=== PATIENT | male | born 1940 | race Caucasian/White ===

== ENCOUNTER 2020-01-30 08:14 | Outpatient (REF) | payer MEDICARE, OTHER, SELFPAY ==
[2020-01-30 08:44] LABS: MANUAL DIFF FLAG NO
[2020-01-30 08:49] LABS: Basophils Percent Auto 0.3 % (0-2); Eosinophils Absolute Auto 0.2 X10*3/uL (0.0-0.4); Eosinophils Percent Auto 2.1 % (0-4); Hematocrit 42.2 % (42-52); Hemoglobin 13.5 g/dl (14.0-18.0); Imm Gran Abs Auto 0.03 X10*3/uL (0.00-0.03); Imm Gran Pct Auto 0.3 % (0.0-0.4); Lymphocytes Absolute Auto 2.2 X10*3/uL (1.2-4.9); Lymphocytes Percent Auto 24.9 % (20-40); Mean Corpuscular Hemoglobin 30.5 pg (27.0-33.0); Mean Corpuscular Volume 95.5 fL (80-98); Mean Platelet Volume 9.9 fL (9.4-12.4); Monocytes Absolute Auto 0.7 X10*3/uL (0.1-1.2); Monocytes Percent Auto 8.1 % (2-11); Neutrophils Absolute Auto 5.6 X10*3/uL (2.0-8.3); Neutrophils Percent Auto 64.3 % (45-73); Platelet Count 219 X10*3/uL (160-400); Red Blood Count 4.42 X10*6/uL (4.60-5.80); Red Cell Distribution Width 13.7 % (11.0-16.0); White Blood Count 8.7 X10*3/uL (4.8-10.8)
[2020-01-30 09:13] LABS: Alanine Aminotransferase 14 U/L (0-40); Albumin Level 4.2 g/dL (3.5-5.0); Alkaline Phosphatase 85 U/L (39-117); Anion Gap 10 (12-20); Aspartate Amino Transferase 19 U/L (5-37); Blood Urea Nitrogen 17 mg/dL (9-16); Carbon Dioxide 33 mmol/L (22-29); Chloride 105 mmol/L (96-108); Estimated Glomerular Filt Rate > 60; Glucose Fasting 101 mg/dL (60-99); Potassium 4.4 mmol/l (3.3-5.1); Sodium 144 mmol/L (135-145); Total Protein 7.5 g/dL (6.5-8.0)
[2020-01-30 09:19] LABS: Alanine Aminotransferase 13 U/L (0-40); Cholesterol 141 mg/dL; HDL Cholesterol 66 mg/dL; LDL Cholesterol Calculated 61 mg/dl; Triglycerides 70 mg/dL
[2020-02-04 16:57] LABS: Levetiracetam Keppra 11.7 mcg/mL (12.0-46.0)
== END 2020-01-30 08:15 | disposition home or self-care (01) ==
LOC: HO.LAB 08:14
PROVIDERS: PCP Internal Medicine; Visit Provider Internal Medicine Cardiovascular Disease
DX: I25.700 Atherosclerosis of coronary artery bypass graft(s), unspecified, with unstable angina pectoris (principal); D64.9 Anemia, unspecified; G40.909 Epilepsy, unspecified, not intractable, without status epilepticus; I25.10 Atherosclerotic heart disease of native coronary artery without angina pectoris
CPT/HCPCS: 36415; 80053; 80061; 80177; 84460; 85025

== ENCOUNTER 2021-03-31 10:47 | Outpatient (REF) | payer MEDICARE, OTHER, SELFPAY ==
[2021-03-31 13:55] LABS: Hematocrit 43.2 % (42.0-52.0); Hemoglobin 14.2 g/dl (14.0-18.0); Mean Corpuscular HGB Conc 32.9 g/dl (31.0-36.0); Mean Corpuscular Hemoglobin 31.3 pg (27.0-33.0); Mean Corpuscular Volume 95.4 fL (80.0-98.0); Mean Platelet Volume 10.8 fL (9.4-12.4); Platelet Count 206 X10*3/uL (160-400); Red Blood Count 4.53 X10*6/uL (4.60-5.80); Red Cell Distribution Width 12.4 % (11.0-16.0); White Blood Count 7.1 X10*3/uL (4.8-10.8)
[2021-03-31 14:16] LABS: Anion Gap 14 (12-20); Blood Urea Nitrogen 17 mg/dL (9-16); Calcium 9.5 mg/dL (8.4-10.2); Carbon Dioxide 26 mmol/L (22-29); Chloride 106 mmol/L (96-108); Cholesterol 205 mg/dL; Estimated Glomerular Filt Rate > 60; Glucose Fasting 93 mg/dL (60-99); HDL Cholesterol 55 mg/dL; LDL Cholesterol Calculated 130 mg/dl; Potassium 4.1 mmol/L (3.3-5.1); Sodium 142 mmol/L (135-145); Triglycerides 101 mg/dL
[2021-03-31 14:20] LABS: B Type Natriuretic Peptide 35 pg/mL (<100)
== END 2021-03-31 10:48 | disposition home or self-care (01) ==
LOC: HO.10HDL 10:47
PROVIDERS: Visit Provider Internal Medicine Cardiovascular Disease
DX: I25.10 Atherosclerotic heart disease of native coronary artery without angina pectoris (principal); D64.9 Anemia, unspecified
CPT/HCPCS: 36415; 80048; 80061; 83880; 85027

== ENCOUNTER 2021-06-05 12:10 | Outpatient (REF) | payer MEDICARE, OTHER, SELFPAY ==
[2021-06-05 12:30] LABS: MANUAL DIFF FLAG NO
[2021-06-05 12:43] LABS: Basophils Percent Auto 0.4 % (0-2); Eosinophils Absolute Auto 0.1 X10*3/uL (0.0-0.4); Eosinophils Percent Auto 1.1 % (0-4); Hematocrit 42.9 % (42.0-52.0); Hemoglobin 14.3 g/dl (14.0-18.0); Imm Gran Abs Auto 0.03 X10*3/uL (0.00-0.03); Imm Gran Pct Auto 0.4 % (0.0-0.4); Lymphocytes Absolute Auto 1.5 X10*3/uL (1.2-4.9); Mean Corpuscular HGB Conc 33.3 g/dl (31.0-36.0); Mean Corpuscular Hemoglobin 32.4 pg (27.0-33.0); Mean Corpuscular Volume 97.3 fL (80.0-98.0); Mean Platelet Volume 10.4 fL (9.4-12.4); Monocytes Absolute Auto 0.5 X10*3/uL (0.1-1.2); Monocytes Percent Auto 7.4 % (2-11); Neutrophils Absolute Auto 5.1 x10*3/uL (2.0-8.3); Neutrophils Percent Auto 69.7 % (45-73); Platelet Count 212 X10*3/uL (160-400); Red Blood Count 4.41 X10*6/uL (4.60-5.80); Red Cell Distribution Width 12.5 % (11.0-16.0); White Blood Count 7.3 X10*3/uL (4.8-10.8)
[2021-06-05 13:02] LABS: Anion Gap 9 (12-20); Blood Urea Nitrogen 14 mg/dL (9-16); Calcium 9.1 mg/dL (8.4-10.2); Carbon Dioxide 31 mmol/L (22-29); Chloride 106 mmol/L (96-108); Estimated Glomerular Filt Rate 57; Glucose Random 123 mg/dL (60-115); Sodium 142 mmol/L (135-145)
[2021-06-05 13:07] LABS: Prothrombin Time 11.4 SEC (9.9-13.0)
== END 2021-06-05 12:11 | disposition home or self-care (01) ==
LOC: HO.LAB 12:10
PROVIDERS: PCP Internal Medicine; Visit Provider Internal Medicine Cardiovascular Disease
DX: Z01.818 Encounter for other preprocedural examination (principal); I25.10 Atherosclerotic heart disease of native coronary artery without angina pectoris; I48.91 Unspecified atrial fibrillation; I63.9 Cerebral infarction, unspecified
CPT/HCPCS: 36415; 80048; 85025; 85610

== ENCOUNTER 2022-03-06 10:18 | Emergency (ER) | payer MEDICARE, OTHER, SELFPAY ==
--- NOTE | ~2022-03-06 | XR_ITS ---
EXAMINATION: CR X-RAY KNEES BILATERAL CLINICAL INFORMATION: Status post trauma with knee pain. COMPARISON: None TECHNIQUE: 4 views each of the bilateral knees were obtained. FINDINGS: Mild medial femoral-tibial joint space narrowing is seen bilaterally. There is no acute fracture, dislocation or joint effusion. The soft tissues are unremarkable. Surgical clips are seen in the soft tissues posteromedially on the left. XR/XR knee LT 3V IMPRESSION: Mild medial femoral-tibial joint space narrowing may be degenerative in nature. No acute abnormality.
--- NOTE | ~2022-03-06 | XR_ITS ---
EXAMINATION: CR X-RAY KNEES BILATERAL CLINICAL INFORMATION: Status post trauma with knee pain. COMPARISON: None TECHNIQUE: 4 views each of the bilateral knees were obtained. FINDINGS: Mild medial femoral-tibial joint space narrowing is seen bilaterally. There is no acute fracture, dislocation or joint effusion. The soft tissues are unremarkable. Surgical clips are seen in the soft tissues posteromedially on the left. XR/XR knee RT 3V IMPRESSION: Mild medial femoral-tibial joint space narrowing may be degenerative in nature. No acute abnormality.
[2022-03-06 10:23] VITALS: PULSE 82; RESP 19; TEMP 36.6; O2SAT 98; BMI 22.6
--- NOTE | 2022-03-06 11:55 | ED.LOWEXIN ---
HPI - Extremity Injury (Lower) General Chief Complaint: Extremity Injury, Lower Stated Complaint: fall, diff walking Time Seen by Provider: 03/06/22 11:46 Source: patient Mode of arrival: ambulatory Limitations: no limitations History of Present Illness HPI Narrative: Patient is an 82-year-old male who presents to the emergency department for bilateral knee pain after a mechanical fall. He states about 4 days ago he had moved a floor pedal machine to the side. While he was going to stand up he thought he had moved it for up to the side but he wound up tripping over the edge of it, falling forward onto the ground landing on bilateral hands and knees. Denies any head strike or loss of consciousness. Denies the use of anticoagulants. Has had ongoing pain reoccurred bilateral knees since event. Has been taking Tylenol for pain which actually does improve his symptoms. He presents today wanting to be evaluated for any potential internal injury. He has been using a walking stick at home which is also helping his gait, but does not typically use a walker or cane at baseline. Related Data Home Medications Medication Instructions Recorded Confirmed levetiracetam 500 mg tablet 500 mg PO BID 02/07/20 11/18/21 aspirin 81 mg tablet,delayed 81 mg PO DAILY 05/21/20 11/18/21 release sacubitril 24 mg-valsartan 26 mg 1 tab PO BID 05/25/21 11/18/21 tablet (Entresto) amlodipine 5 mg tablet 5 mg PO DAILY 08/12/21 11/18/21 Previous Rx's Medication Instructions Recorded metoprolol succinate 25 mg 25 mg PO DAILY 90 days #90 tabs 05/17/21 tablet,extended release 24 hr pantoprazole 40 mg tablet,delayed 40 mg PO DAILY 90 days #90 tabs 05/17/21 release tamsulosin 0.4 mg capsule 0.4 mg PO DAILY 90 days #90 caps 01/24/22 Allergies Allergy/AdvReac Type Severity Reaction Status Date / Time No Known Allergies Allergy Mild NOT Verified 08/12/21 10:19 APPLICABLE Review of Systems Review of Systems: Constitutional: No weight loss, fever, chills, weakness or fatigue. Skin: No rash or itching. Cardiovascular: No chest pain, chest pressure or chest discomfort. No palpitations Respiratory: No shortness of breath, cough or sputum production. Gastrointestinal: No anorexia, nausea, vomiting or diarrhea. No abdominal pain Genitourinary: No burning micturition. No urinary frequency or incontinence. Musculoskeletal: Bilateral knee pain as noted in HPI Psychiatric: No depression or anxiety. Yes all other systems are reviewed and are negative ON LICENSE OF [facility] Past Medical History Attestation statement: The following information was validated with the patient. Source: old records reviewed Medical History Abnormal nuclear stress test CAD (coronary artery disease) of artery bypass graft GERD (gastroesophageal reflux disease) History of stroke Iron deficiency Myocardial ischemia Seizures Surgical History History of colonoscopy History of lumbar surgery Hx of CABG Family History Family History Father Myocardial infarction Mother Diabetes Hypertension Social History Social History Household Members: Spouse Housing: House Are you a primary healthcare science specialist to a significant other at home: No Do you presently have visiting nurse or other home services: No Alcohol intake: current Alcohol intake frequency: holidays/special occasions only Patient Tobacco Use Status: Never used Tobacco Advance Directives: No service: No Current occupational status: retired Current occupation: [place] [employer] Physical Exam Vital Signs: Vital Signs: Last Vital Signs Temp 98 F 03/06/22 10:23 Pulse 82 03/06/22 10:23 Resp 19 03/06/22 10:23 Pulse Ox 98 03/06/22 10:23 O2 Del Method 03/06/22 10:23 BMI result Body Mass Index 22.6 Appearance: Alert.?Oriented to person, place and time. No acute distress.?Normal affect. Eyes: Pupils equal, round and reactive to light.? ENT: Pharynx normal.?? Neck: Normal inspection.? Neck supple.?? CVS: Heart sounds normal. Normal heart rate and rhythm.? Pulses normal.?? Respiratory: No respiratory distress.? Lung sounds clear to auscultation bilaterally?? Abdomen: Soft and non-tender. Normoactive bowel sounds. Skin: Skin warm and dry.? Normal skin color.? ? Extremities: No lower extremity edema.? No calf ttp. Bilateral knees without laxity or obvious deformity upon examination, no effusion. No rashes, erythema, warmth. There is an abrasion to the right anterior knee, does not appear infected, healed bruising to the left anterior knee. 2+ DP/PT pulse bilaterally. Neuro: Moves all extremities spontaneously. Sensation intact bilaterally. No focal neuro deficits. Ambulates with slow antalgic gait Course Course Course Narrative: Patient is an 82-year-old male with a past medical history of CAD, GERD, anemia, myocardial infarction presented to emergency department for evaluation of traumatic bilateral knee pain status post mechanical fall. XR of the left and right knee reveals no acute fractures or dislocations, no obvious joint effusions. Mild joint space narrowing which may be degenerative in nature. At the time of examination he is well-appearing. Physical examination not consistent with septic joint. He is ambulatory with antalgic gait, improvement in gait with use of cane. Declines evaluation from Physical therapy, has no interest in short-term rehab. States he will follow-up with his primary care provider during the week. Discussed plan of care for discharge home, rest, ice, Ernst bandage for compression, elevation of the extremity, continued use of Tylenol as needed for pain. Reviewed worrisome signs and symptoms to return back to the emergency department for. All questions answered. Patient discharged home in stable condition. MDM - Extremity Injury (Lower) Medical Records Attestation: I reviewed the patient's medical records. Imaging Data knee XR: Radiologist's impression: XR/XR knee RT 3V IMPRESSION: Mild medial femoral-tibial joint space narrowing may be degenerative in nature. No acute abnormality.? XR/XR knee LT 3V IMPRESSION: Mild medial femoral-tibial joint space narrowing may be degenerative in nature. No acute abnormality.? Discharge Plan Discharge Clinical Impression: Bilateral knee pain Patient Disposition: Home, Self-Care Instructions: Knee Pain (ED) Additional Instructions: As discussed, the x-ray does not reveal any fracture dislocation to both knees. Please continue to rest over the next few days, apply ice for 10-15 minutes 3-4 times daily, use Ernst bandage for compression, elevate your legs above the level of the chest when possible. Use walking sticks/cane to help with ambulation. You can take Tylenol 500 mg, 2 tablets (1,000mg) every 4-6 hours as needed for pain, but not to exceed 3 doses daily (3,000mg). Contact your primary care provider to arrange for a follow-up visit within the next week Return to emergency department any new or worsening symptoms or concerns. ? Prescriptions: No Action pantoprazole 40 mg tablet,delayed release (DR/EC) 40 mg PO DAILY 90 Days Qty: 90 3RF metoprolol succinate 25 mg tablet extended release 24 hr 25 mg PO DAILY 90 Days Qty: 90 3RF tamsulosin 0.4 mg capsule 0.4 mg PO DAILY 90 Days Qty: 90 1RF Entresto 24-26 mg Tablet 1 tab PO BID aspirin 81 mg tablet,delayed release (DR/EC) 81 mg PO DAILY levetiracetam 500 mg tablet 500 mg PO BID amlodipine 5 mg tablet 5 mg PO DAILY Referrals: Emmanuelle Castle MD [Primary Care Provider] -
[2022-03-06 12:29] VITALS: BP 144/72; PULSE 61; RESP 18; TEMP 36.7; O2SAT 97
== END 2022-03-06 12:43 | disposition home or self-care (01) ==
PROVIDERS: Emergency Provider Emergency Medicine Emergency Medical Services; PCP Internal Medicine
DX: M25.562 Pain in left knee (principal); M25.561 Pain in right knee
CPT/HCPCS: 73562; 99282; 99283

== ENCOUNTER 2022-12-01 13:10 | Outpatient (AMB) | payer MEDICARE, OTHER, SELFPAY ==
[2022-12-01 13:15] VITALS: BP 140/80; PULSE 67; O2SAT 98; BMI 21.0
--- NOTE | 2022-12-01 13:15 | MHC.PC.OV ---
Vital Signs 12/01/22 13:15 12/01/22 13:41 Height 5 ft 11 in Weight 150 lb 8 oz BMI 21.0 BP 140/80 H 130/80 Blood Pressure Location Lt brachial Lt brachial Position Sitting Sitting Pulse 67 Pulse Source Pulse Oximeter Pulse Oximetry (%) 98 Oxygen Delivery Method Room Air Intake Visit Reasons: bp Intake Note: Pt is here for BP check. Hair Mixer Required: No Accompanied by: Self / Same As Patient Allergies No Known Allergies Allergy (Mild, Verified 12/01/22 13:32) NOT APPLICABLE Medication List - Last Reconciled 12/01/22 by Emmanuelle Swain MD amlodipine 5 mg PO DAILY aspirin 81 mg PO DAILY levetiracetam 500 mg PO BID metoprolol succinate ER 25 mg PO DAILY 90 days pantoprazole 40 mg PO DAILY 90 days sacubitril-valsartan 24-26 mg (Entresto) 1 tab PO BID sertraline 25 mg PO DAILY 30 days tamsulosin 0.4 mg PO DAILY 90 days Tobacco use date assessed: 12/01/22 Fall risk assessment: No Falls in past year Last assessed Fall Risk: 12/01/22 Dental Screening Dental Screen Date: 12/01/22 Did you have a dental visit in the last 12 months?: Yes Did you have a dental problem in the last 6 months where you did not have access to dental care?: No Was dental information given to patient?: Patient has dentist HPI HPI Comments History of Present Illness Details This is an 82-year-old male with hypertension, GERD, seizures and mild major depression that comes today for follow-up on his conditions. Blood pressure borderline normal to elevated. GERD stable with PPIs. Has not had a seizure in over 6 months and is follow by Neurology. Depression somewhat stable with sertraline. No chest pain. Complains of dyspnea with exertion and will follow with Cardiology next month. [facility] Medical History Abnormal nuclear stress test CAD (coronary artery disease) of artery bypass graft GERD (gastroesophageal reflux disease) History of stroke Iron deficiency Myocardial ischemia Seizures Surgical History History of colonoscopy History of lumbar surgery Hx of CABG Family History Father Myocardial infarction Mother Diabetes Hypertension Social History (Updated 12/01/22 @ 13:34 by Emmanuelle Swain MD) Household Members: Spouse Housing: House Are you a primary animal care technician to a significant other at home: No Do you presently have visiting nurse or other home services: No Alcohol intake: current Alcohol intake frequency: a few times a month Alcohol type: beer Patient Tobacco Use Status: Former Tobacco user e-Cigarette/Vaping Use: Never Used service: No Current occupational status: retired Current occupation: [employer] Cognitive needs: No Hearing needs: No Vision needs: No Questionnaire Thrive Questionnaire Date Thrive assessed: 07/27/22 REGGIE-7 AMB Questionnaire REGGIE-7 Date REGGIE - 7 assessed: 07/27/22 Source: Developed by Drs. Lex Dempsey, Sonia Mead, Yang Martinez and colleagues, with an educational eula from [employer]. Review of Systems Const All systems reviewed & are unremarkable except as noted in HPI and below Eyes Reports no additional complaints, Denies change in vision and Denies other visual disturbances Card Denies chest pain at rest, Denies chest pain with activity, Denies edema, Denies irregular heart rhythm, Denies claudication, Denies dyspnea, Reports dyspnea on exertion, Denies orthopnea, Denies paroxysmal nocturnal dyspnea and Denies slow heart rate Resp Denies cough, Denies dyspnea and Reports dyspnea on exertion GI Denies abdominal pain, Denies change in bowel habits, Denies excessive flatus, Denies nausea and Denies vomiting Denies urinary hesitancy, Denies urinary incontinence and Denies urinary urgency Musc Denies abnormal gait, Denies atrophy, Denies deformity and Denies limited range of motion Skin/Breast Denies bleeding lesions, Denies changing lesions and Denies rash Neuro Denies abnormal gait and Denies lack of coordination Physical exam (Primary Care) Vital Signs: Last Vital Signs Pulse 67 12/01/22 13:15 BP 140/80 H 12/01/22 13:15 Pulse Ox 98 12/01/22 13:15 Oxygen Delivery Method Room Air 12/01/22 13:15 BMI result Body Mass Index 21.0 Tobacco/Smoking Status: Tobacco use Status Tobacco use date assessed 12/01/22 12/01/22 13:23 Patient Tobacco Use Status Never used Tobacco 12/01/22 13:17 e-Cigarette/Vaping Use Never Used 12/01/22 13:23 Thrive Assessment: Date of Thrive Assessment Date Thrive assessed 07/27/22 12/01/22 13:17 Eyes General: appearance normal, both eyes and all related structures Eyelids: Yes eyelids normal Conjunctivae: conjunctivae normal Neck Neck: Yes normal visual inspection and Yes supple Resp Effort & Inspection: normal respiratory effort Auscultation: clear to auscultation bilaterally Cardio Jugular venous distension: no JVD Rate: regular rate Rhythm: regular rhythm Heart sounds: S1 normal heart sound present and S2 normal heart sound present Extrem General: Yes full ROM Assessment and Plan Assessment & Plan (1) Seizures: Code(s): R56.9 - Unspecified convulsions Plan: Continue Keppra. Follow-up with Neurology. (2) Mild major depression: Code(s): F32.0 - Major depressive disorder, single episode, mild Plan: Continue sertraline. (3) GERD (gastroesophageal reflux disease): Code(s): K21.9 - Gastro-esophageal reflux disease without esophagitis Qualifiers: Esophagitis presence: esophagitis presence not specified Qualified Code(s): K21.9 - Gastro-esophageal reflux disease without esophagitis Plan: Continue PPIs (4) Hypertension: Code(s): I10 - Essential (primary) hypertension Plan: Continue amlodipine and Entresto. Blood pressure goal is equal or less than 130/80. Orders: Orders Comprehensive [place]. Panel Fast Today I10 - Essential (primary) hypertension Lipid Panel Today E78.5 - Hyperlipidemia, unspecified, I10 - Essential (primary) hypertension IRON PROFILE Today D64.9 - Anemia, unspecified, E61.1 - Iron deficiency Complete Blood Count Auto Diff Today D64.9 - Anemia, unspecified, E61.1 - Iron deficiency Coding Level of Care Code Est Pt Level 4 (92431) Diagnoses Seizures R56.9 Mild major depression F32.0 GERD (gastroesophageal reflux disease) K21.9 Esophagitis presence: esophagitis presence not specified Hypertension I10 Time Spent (min) 22
[2022-12-01 13:41] VITALS: BP 130/80
== END 2022-12-01 13:38 | disposition home or self-care (01) ==
PROVIDERS: Visit Provider Internal Medicine
DX: R56.9 Unspecified convulsions (principal); F32.0 Major depressive disorder, single episode, mild; K21.9 Gastro-esophageal reflux disease without esophagitis; I10 Essential (primary) hypertension
CPT/HCPCS: 99214

== ENCOUNTER 2022-12-22 07:17 | Outpatient (REF) | payer MEDICARE, OTHER, SELFPAY ==
[2022-12-22 07:27] LABS: MANUAL DIFF FLAG NO
[2022-12-22 08:02] LABS: Basophils Percent Auto 0.3 % (0-2); Eosinophils Absolute Auto 0.1 X10*3/uL (0.0-0.4); Eosinophils Percent Auto 1.1 % (0-4); Hematocrit 39.8 % (42.0-52.0); Hemoglobin 13.3 g/dl (14.0-18.0); Imm Gran Abs Auto 0.02 X10*3/uL (0.00-0.03); Imm Gran Pct Auto 0.3 % (0.0-0.4); Lymphocytes Absolute Auto 1.9 X10*3/uL (1.2-4.9); Lymphocytes Percent Auto 25.3 % (20-40); Mean Corpuscular HGB Conc 33.4 g/dl (31.0-36.0); Mean Corpuscular Hemoglobin 33.2 pg (27.0-33.0); Mean Corpuscular Volume 99.3 fL (80.0-98.0); Mean Platelet Volume 10.3 fL (9.4-12.4); Monocytes Absolute Auto 0.7 X10*3/uL (0.1-1.2); Monocytes Percent Auto 9.5 % (2-11); Neutrophils Absolute Auto 4.7 x10*3/uL (2.0-8.3); Neutrophils Percent Auto 63.5 % (45-73); Platelet Count 216 X10*3/uL (160-400); Red Blood Count 4.01 X10*6/uL (4.60-5.80); Red Cell Distribution Width 12.9 % (11.0-16.0); White Blood Count 7.4 X10*3/uL (4.8-10.8)
[2022-12-22 08:36] LABS: Alanine Aminotransferase 13 U/L (0-40); Albumin Level 4.1 g/dL (3.5-5.0); Alkaline Phosphatase 56 U/L (39-117); Anion Gap 14 (12-20); Aspartate Amino Transferase 19 U/L (5-37); Bilirubin Total 0.6 mg/dL (0.0-1.0); Blood Urea Nitrogen 16 mg/dL (9-16); Calcium 9.4 mg/dL (8.4-10.2); Carbon Dioxide 26 mmol/L (22-29); Chloride 106 mmol/L (96-108); Cholesterol 185 mg/dL (<200); Estimated Glomerular Filt Rate > 60; Glucose Fasting 103 mg/dL (60-99); HDL Cholesterol 77 mg/dL (>40); Iron 79 mcg/dL (45-160); LDL Cholesterol Calculated 94 mg/dL (<100); Percent Iron Saturation 34 % (15-50); Potassium 4.3 mmol/L (3.3-5.1); Sodium 142 mmol/L (135-145); Total Iron Binding Capacity 232 mcg/dL (228-428); Total Protein 7.1 g/dL (6.5-8.0); Triglycerides 72 mg/dL (<150); Unsaturated Iron Binding 153 ug/dL
== END 2022-12-22 07:18 | disposition home or self-care (01) ==
LOC: HO.LAB 07:17
PROVIDERS: PCP Internal Medicine; Visit Provider Internal Medicine
DX: E78.5 Hyperlipidemia, unspecified (principal); I10 Essential (primary) hypertension; D64.9 Anemia, unspecified; E61.1 Iron deficiency
CPT/HCPCS: 36415; 80053; 80061; 83540; 85025

== ENCOUNTER 2023-04-04 13:42 | Outpatient (AMB) | payer MEDICARE, OTHER, SELFPAY ==
[2023-04-04 13:45] VITALS: BP 142/70; BMI 20.4
--- NOTE | 2023-04-04 13:45 | A.OFFPC_ITS ---
Vital Signs 04/04/23 13:45 04/04/23 14:15 Height 5 ft 11 in Weight 146 lb BMI 20.4 BP 142/70 H 138/70 Blood Pressure Location Lt brachial Lt brachial Position Sitting Sitting Intake Visit Reasons: bp Intake Note: Patient here for a follow up BP Family Independence Case Manager Required: No Accompanied by: Self / Same As Patient Allergies No Known Allergies Allergy (Mild, Verified 04/04/23 13:57) NOT APPLICABLE Medication List - Last Reconciled 04/04/23 by Emmanuelle Swain MD amlodipine 5 mg PO DAILY aspirin 81 mg PO DAILY levetiracetam 500 mg PO BID metoprolol succinate ER 25 mg PO DAILY 90 days pantoprazole 40 mg PO DAILY 90 days sacubitril-valsartan 24-26 mg (Entresto) 1 tab PO BID sertraline 25 mg PO DAILY 30 days tamsulosin 0.4 mg PO DAILY 90 days Tobacco use date assessed: 12/01/22 Fall risk assessment: No Falls in past year Last assessed Fall Risk: 04/04/23 Dental Screening Dental Screen Date: 04/04/23 Did you have a dental visit in the last 12 months?: Yes Did you have a dental problem in the last 6 months where you did not have access to dental care?: No Was dental information given to patient?: Patient has dentist HPI HPI Comments History of Present Illness Details This is an 83-year-old male with hypertension, GERD, mild major depression and seizures that comes today for follow-up on his conditions. Blood pressure borderline normal to elevated. GERD stable with PPIs as needed. Depression somewhat well control with sertraline but he is having a stressful time now with his at ICU due to status epilepticus. He has not had a seizure in over 3 months with [place] and this is follow by Neurology. No chest pain or shortness of breath. [facility] Medical History Abnormal nuclear stress test Myocardial ischemia History of stroke Seizures Iron deficiency GERD (gastroesophageal reflux disease) CAD (coronary artery disease) of artery bypass graft Surgical History History of colonoscopy Hx of CABG History of lumbar surgery Family History Father Myocardial infarction Mother Diabetes Hypertension Social History Household Members: Spouse Housing: House Are you a primary healthcare manager to a significant other at home: No Do you presently have visiting nurse or other home services: No Alcohol intake: current Alcohol intake frequency: a few times a month Alcohol type: beer Patient Tobacco Use Status: Former Tobacco user e-Cigarette/Vaping Use: Never Used service: No Current occupational status: retired Current occupation: [place] [employer] Cognitive needs: No Hearing needs: No Vision needs: No Questionnaire Thrive Questionnaire Date Thrive assessed: 07/27/22 REGGIE-7 AMB Questionnaire REGGIE-7 Date REGGIE - 7 assessed: 07/27/22 Source: Developed by Drs. Lex Dempsey, Sonia Mead, Yang Martinez and colleagues, with an educational eula from [employer]. Review of Systems Const All systems reviewed & are unremarkable except as noted in HPI and below Eyes Reports no additional complaints, Denies change in vision and Denies other visual disturbances Card Denies chest pain at rest, Denies chest pain with activity, Denies edema, Denies irregular heart rhythm, Denies claudication, Denies dyspnea, Denies dyspnea on exertion, Denies orthopnea, Denies paroxysmal nocturnal dyspnea and Denies slow heart rate Resp Denies cough, Denies dyspnea and Denies dyspnea on exertion GI Denies abdominal pain, Denies change in bowel habits, Denies excessive flatus, Denies nausea and Denies vomiting Denies urinary hesitancy, Denies urinary incontinence and Denies urinary urgency Musc Denies abnormal gait, Denies atrophy, Denies deformity and Denies limited range of motion Skin/Breast Denies bleeding lesions, Denies changing lesions and Denies rash Neuro Denies abnormal gait, Denies behavioral changes and Denies lack of coordination Psych Denies behavioral changes Physical exam (Primary Care) Vital Signs: Last Vital Signs BP 142/70 H 04/04/23 13:45 BMI result Body Mass Index 20.4 Tobacco/Smoking Status: Tobacco use Status Tobacco use date assessed 12/01/22 04/04/23 13:49 Patient Tobacco Use Status Former Tobacco user 04/04/23 13:49 e-Cigarette/Vaping Use Never Used 04/04/23 13:49 Thrive Assessment: Date of Thrive Assessment Date Thrive assessed 07/27/22 04/04/23 13:49 Eyes General: appearance normal, both eyes and all related structures Eyelids: Yes eyelids normal Conjunctivae: conjunctivae normal Neck Neck: Yes normal visual inspection and Yes supple Resp Effort & Inspection: normal respiratory effort Auscultation: clear to auscultation bilaterally Cardio Jugular venous distension: no JVD Rate: regular rate Rhythm: regular rhythm Heart sounds: S1 normal heart sound present and S2 normal heart sound present Extrem General: Yes full ROM Office Procedures Flu Questionnaire Does the patient have a severe egg allergy?: No Immunizations flu vacc [id number] 6mos up(PF) 60 mcg(15 mcgx4)/0.5 mL IM syringe Performing Provider: Emmanuelle Swain MD [facility] Documented (not given) by: JUAN CARLOS Plascencia on 04/04/23 13:50 Reason Not Given: Received Previously Assessment and Plan Assessment & Plan (1) Hypertension: Code(s): I10 - Essential (primary) hypertension Plan: Continue amlodipine. (2) Seizures: Code(s): R56.9 - Unspecified convulsions Plan: Continue Keppra. Follow up with Neurology. (3) GERD (gastroesophageal reflux disease): Code(s): K21.9 - Gastro-esophageal reflux disease without esophagitis Qualifiers: Esophagitis presence: esophagitis presence not specified Qualified Code(s): K21.9 - Gastro-esophageal reflux disease without esophagitis Plan: Continue PPIs as needed. (4) Mild major depression: Code(s): F32.0 - Major depressive disorder, single episode, mild Plan: Continue sertraline. Orders: Orders Influenza [id number] Immunization Today Z23 - Encounter for immunization Coding Level of Care Code Est Pt Level 4 (19486) Diagnoses Hypertension I10 Seizures R56.9 Gastroesophageal reflux disease, unspecified whether esophagitis present K21.9 Esophagitis presence: esophagitis presence not specified Mild major depression F32.0 Time Spent (min) 21
[2023-04-04 14:15] VITALS: BP 138/70
== END 2023-04-04 14:09 | disposition home or self-care (01) ==
PROVIDERS: PCP Internal Medicine; Visit Provider Internal Medicine
DX: I10 Essential (primary) hypertension (principal); R56.9 Unspecified convulsions; F32.0 Major depressive disorder, single episode, mild; K21.9 Gastro-esophageal reflux disease without esophagitis
CPT/HCPCS: 99214

== ENCOUNTER 2023-09-13 07:06 | Outpatient (AMB) | payer MEDICARE, OTHER, SELFPAY ==
--- NOTE | 2023-09-13 07:35 | MHC.PC.OV ---
Intake Visit Reasons: AWV Allergies No Known Allergies Allergy (Mild, Verified 04/04/23 13:57) NOT APPLICABLE Tobacco use date assessed: 12/01/22 Dental Screening Dental Screen Date: 04/04/23 [facility] Medical History Abnormal nuclear stress test Myocardial ischemia History of stroke Seizures Iron deficiency GERD (gastroesophageal reflux disease) CAD (coronary artery disease) of artery bypass graft Surgical History History of colonoscopy Hx of CABG History of lumbar surgery Family History Father Myocardial infarction Mother Diabetes Hypertension Social History Household Members: Spouse Housing: House Are you a primary nonfarm animal caretaker to a significant other at home: No Do you presently have visiting nurse or other home services: No Alcohol intake: current Alcohol intake frequency: a few times a month Alcohol type: beer Patient Tobacco Use Status: Former Tobacco user e-Cigarette/Vaping Use: Never Used service: No Current occupational status: retired Current occupation: [employer] Cognitive needs: No Hearing needs: No Vision needs: No Questionnaire Thrive Questionnaire Date Thrive assessed: 07/27/22 REGGIE-7 AMB Questionnaire REGGIE-7 Date REGGIE - 7 assessed: 07/27/22 Source: Developed by Drs. Lex Dempsey, Sonia Mead, Yang Martinez and colleagues, with an educational eula from [employer]. Physical exam (Primary Care) Tobacco/Smoking Status: Tobacco use Status Tobacco use date assessed 12/01/22 04/04/23 13:49 Patient Tobacco Use Status Former Tobacco user 04/04/23 13:49 e-Cigarette/Vaping Use Never Used 04/04/23 13:49 Thrive Assessment: Date of Thrive Assessment Date Thrive assessed 07/27/22 04/04/23 13:49 Coding
[2023-09-13 07:36] VITALS: BP 122/58; BMI 21.8
--- NOTE | 2023-09-13 07:36 | A.OFFVIS_ITS ---
Intake Vital Signs 09/13/23 07:36 Height 5 ft 11 in Weight 156 lb BMI 21.8 BP 122/58 L Blood Pressure Location Lt brachial Position Sitting Intake Visit Reasons: AWV Intake Note: Patient here for an annual wellness visit Well Testing Operator Required: No Accompanied by: Self / Same As Patient Allergies No Known Allergies Allergy (Mild, Verified 09/13/23 07:52) NOT APPLICABLE Medication List - Last Reconciled 09/13/23 by Emmanuelle Swain MD amlodipine 5 mg PO DAILY 90 days aspirin 81 mg PO DAILY levetiracetam 500 mg PO BID metoprolol succinate ER 25 mg PO DAILY 90 days pantoprazole 40 mg PO DAILY 90 days sacubitril-valsartan 24-26 mg (Entresto) 1 tab PO BID sertraline 25 mg PO DAILY 30 days tamsulosin 0.4 mg PO DAILY 90 days HPI HPI Comments History of Present Illness Details This is an 83-year-old male with mild major depression and seizures that comes for his Medicare annual wellness exam. Depression has been worse since in 05/07/2023. He is on sertraline and I will increase it from 25 mg to 50 mg. He has some anxiety and I will add benzodiazepine as needed. Patient is aware that benzodiazepines can cause addiction, sedation and memory loss. Maximilian Ch from Behavioral Health was consulted in the office talk with him. Has not had a seizure in over 6 months and this is follow by Neurology. [facility] handed to patient. We filled out MOLST paperwork. [facility] Medical History (Updated 09/13/23 @ 10:30 by Emmanuelle Swain MD) Abnormal nuclear stress test Myocardial ischemia History of stroke Seizures Iron deficiency GERD (gastroesophageal reflux disease) CAD (coronary artery disease) of artery bypass graft Surgical History History of colonoscopy Hx of CABG History of lumbar surgery Family History Father Myocardial infarction Mother Diabetes Hypertension Social History Household Members: Spouse Housing: House Are you a primary child care worker to a significant other at home: No Do you presently have visiting nurse or other home services: No Alcohol intake: current Alcohol intake frequency: a few times a month Alcohol type: beer Patient Tobacco Use Status: Former Tobacco user e-Cigarette/Vaping Use: Never Used service: No Current occupational status: retired Current occupation: [employer] Cognitive needs: No Hearing needs: No Vision needs: No Questionnaire Medicare Wellness Checkup What is your age?: 80 or older What gender do you identify with?: male During the past 4 weeks, how much have you been bothered by emotional problems such as feeling anxious, depressed, irritable, sad or downhearted, and blue?: extremely During the past 4 weeks, has your physical & emotional health limited your social activities with family, friends, neighbors, or groups?: extremely During the past 4 weeks, how much bodily pain have you generally had?: no pain During the past 4 weeks, was someone available to help you if you needed & wanted help?: yes, some During the past 4 weeks, what was the hardest physical activity you could do for at least 2 minutes?: moderate Can you get to places out of walking distance without help? (For eg., can you travel alone on buses, taxis or drive your car?): Yes Can you go shopping for groceries or clothes without someone's help?: Yes Can you prepare your own meals?: Yes Can you do your housework without help?: Yes Because of any health problems, do you need the help of another person with your personal care needs such as eating, bathing, dressing or getting around the house?: No Can you handle your own money without help?: Yes During the past 4 weeks, how would you rate your health in general?: good During the past 4 weeks how have things been going for you?: pretty bad Are you having difficulties driving your car?: no Do you always fasten your seat belt when you are in a car?: yes, usually During past 4 weeks, have you been bothered by the following: never: Sexual problems?, Trouble eating well?, Teeth or denture problems? and Problems using the telephone?, sometimes: Falling or dizzy when standing up and often: Tiredness or fatigue? Have you fallen 2 or more times in the past year?: No Are you afraid of falling?: No Are you a smoker?: no During the past 4 weeks, how many drinks of wine, beer, or other alcoholic beverages did you have?: 6-9 drinks per week Do you exercise for about 20 minutes 3 or more times a week?: yes, some of the time Have you been given information to help with the following?: yes: Keeping track of your medications? and no: Hazards in your house that might hurt you? How often do you have trouble taking medicines the way you have been told to take them?: I always take medicine as prescribed How confident are you that you can control & manage most of your health problems?: somewhat confident What is your race?: White Mini Mental State Exam (MMSE) Orientation What is the (year) (season) (date) (day) (month)?: year, season, date, day and month Where are we (state) (county) (town or city) (hospital) (floor)?: state, county, town or city, hospital/clinic and floor Registration Name of 3 unrelated objects clearly and slowly, then ask patient to repeat all 3 of them. (1st repeat determines score. Make sure they can repeat all three): object 1, object 2 and object 3 Attention & Calculation (CHOOSE ONE) Spell WORLD backwards (DLROW): 5 letters Recall Ask patient to repeat the 3 items from question #3.: object 1, object 2 and object 3 Language Show patient a wristwatch & ask what it is. Repeat for pencil.: watch and pencil Ask the patient to repeat the phrase 'No ifs, ands, or buts' after you.: correct Ask the patient to 'take a piece of paper with their right hand' 'fold paper in half' 'place paper on floor': take paper in right hand, fold paper in half and place paper on floor Print the sentence 'CLOSE YOUR EYES' on a piece. If patient actually closes eyes then score.: followed written direction Give patient a blank piece of paper & ask to write a sentence. Score if it contains a noun & verb.: sentence contains subject and verb Ask patient to copy figure of intersecting pentagons exactly. Score if all 10 angles & 2 intersects are included.: all 10 angles present & 2 are intersected Score Score: 30 Activity of Daily Living Bathing - sponge bath, tub bath or shower: receives no assistance (gets in/out by self, if usual bathing means Dressing - getting clothes from closets & drawers, including inner/outer garments & fasteners.: gets clothes & gets completely dressed without help Toileting - going to the 'toilet room' for urine/bowel elimination & cleaning self/arranging clothes: goes to toilet room, cleans self, arranges clothes without help Transfer: moves in & out of bed and chair without help (may use support object) Continence: controls urination/bowel movements completely by self Feeding: feeds self without help Total Score: 0 Information obtained from: patient Using telephone: independent Traveling: independent Shopping: independent Preparing meals: independent Housework: independent Taking medicine: independent Managing money: independent PHQ-9 Over the last 2 weeks, how often have you been bothered by any of the following problems? 1. Little interest or pleasure in doing things: more than half the days 2. Feeling down, depressed, or hopeless: more than half the days 3. Trouble falling or staying asleep, or sleeping too much: more than half the days 4. Feeling tired or having little energy: more than half the days 5. Poor appetite or overeating: not at all 6. Feeling bad about yourself - or that you are a failure or have let yourself or your family down: more than half the days 7. Trouble concentrating on things, such as reading the newspaper or watching television: several days 8. Moving or speaking so slowly that other people could have noticed. Or the opposite - being so fidgety or restless that you have been moving around a lot more than usual: not at all 9. Thoughts that you would be better off or of hurting yourself in some way: not at all Total score: 11 Depression Screening Interpretation: Positive Depression Screening Follow-up: Existing condition, In treatment and Follow-up Visit Requested Depression Screening Done: Yes 35906 - PHQ-9 Billing: Yes Source: Developed by Drs. Lex Dempsey, Sonia Mead, Yang Martinez and colleagues, with an educational eula from [employer]. REGGIE-7 AMB Questionnaire REGGIE-7 Date REGGIE - 7 assessed: 09/13/23 Feeling nervous, anxious, or on edge: 3 = Nearly every day Not being able to stop or control worryin = Several days Worrying too much about different things: 3 = Nearly every day Trouble relaxin = Nearly every day Being so restless that it is hard to sit still: 2 = More than half the days Becoming easily annoyed or irritable: 0 = Not at all Feeling afraid as if something awful might happen: 1 = Several days Total REGGIE-7 score (0-4 normal; 5-9 mild; 10-14 moderate; 15-21 severe): 13 Source: Developed by Drs. Lex Dempsey, Sonia Mead, Yang Martinez and colleagues, with an educational eula from [employer]. REGGIE-7 Assessment Billing REGGIE-7 Assessment Tool: REGGIE-7 Assessment 46525 Fall Risk Assessment Fall Risk Assessment Fall risk assessment: No Falls in past year Thrive Questionnaire Date Thrive assessed: 09/13/23 I am a: Patient What is your living situation today?: I have a steady place to live Within the past 12 months, did the food you bought not last and you didn't have the money to get more?: Never true Within the past 12 months, did you worry whether your food would run out before you got money to buy more?: Never true Do you have trouble paying for medicines?: No Do you have trouble getting transportation to medical appointments?: No Do you have trouble paying your heating and electricity bill?: No Do you have trouble taking care of your child, family member or friend?: No Do you have trouble with day-to-day activities such as bathing, preparing meals, shopping, managing finances, etc.?: No Are you currently unemployed and looking for a job?: No Are you interested in more education?: No Please select the resources that you would like help with: None Currently or been in a relationship where the following occur: no concerns reported THRIVE Score: 0 AUDIT C Alcohol Use Questionnaire (AUDIT-C) 1. How often do you have a drink containing alcohol?: 2-4 times a month 2. How many drinks containing alcohol do you have on a typical day when you are drinking?: 1 or 2 Total Score: 2 Score Reviewed/Action Taken: No Review of Systems Const All systems reviewed & are unremarkable except as noted in HPI and below Card Denies chest pain at rest, Denies chest pain with activity, Denies edema, Denies irregular heart rhythm, Denies claudication, Denies dyspnea, Denies dyspnea on exertion, Denies orthopnea, Denies paroxysmal nocturnal dyspnea and Denies slow heart rate Resp Denies cough, Denies dyspnea and Denies dyspnea on exertion GI Denies abdominal pain, Denies change in bowel habits, Denies excessive flatus, Denies nausea and Denies vomiting Denies urinary hesitancy, Denies urinary incontinence and Denies urinary urgency Musc Denies abnormal gait, Denies atrophy, Denies deformity and Denies limited range of motion Neuro Denies abnormal gait, Denies confusion and Denies lack of coordination Psych Reports abnormal sleep pattern, Reports anxiety, Denies confusion, Reports depression, Reports difficulty concentrating and Reports anhedonia Physical Exam Vital Signs: Last Vital Signs BP 122/58 L 09/13/23 07:36 BMI result Body Mass Index 21.8 Const General: No confusion Orientation/consciousness: patient oriented x3 and No confusion HEENT Ears: hearing grossly normal bilaterally (Whisper test negative bilaterally) Resp Effort & Inspection: normal respiratory effort Auscultation: clear to auscultation bilaterally Cardio Jugular venous distension: no JVD Rate: regular rate Rhythm: regular rhythm Heart sounds: S1 normal heart sound present and S2 normal heart sound present Neuro General: patient oriented x3, no focal motor deficits and No confusion Gait exam (Neuro): Normal gait present Romberg Test: Negative Extrem General: Yes full ROM Psych Appearance: grossly normal Speech and movement: Normal speech and movement present Affect: Sad affect present Attitude: cooperative Assessment & Plan Assessment & Plan (1) Encounter for annual wellness exam in Medicare patient: Code(s): Z00.00 - Encounter for general adult medical examination without abnormal findings Plan: Repeat in a year. (2) Mild major depression: Code(s): F32.0 - Major depressive disorder, single episode, mild Plan: Increase sertraline to 50 mg. Referred to counseling. (3) Seizures: Code(s): R56.9 - Unspecified convulsions Plan: Continue Keppra. Follow-up with Neurology. Orders: Orders Complete Blood Count Auto Diff Today D64.9 - Anemia, unspecified IRON PROFILE Today D64.9 - Anemia, unspecified Lipid Panel Today E78.5 - Hyperlipidemia, unspecified, I10 - Essential (primary) hypertension Comprehensive [place]. Panel Fast Today I10 - Essential (primary) hypertension Levetiracetam Keppra Today R56.9 - Unspecified convulsions Referrals Counseling Referral F32.0 - Major depressive disorder, single episode, mild Medications: New sertraline 50 mg PO DAILY 90 days 90 tabs 1RF alprazolam 0.5 mg PO BID 30 days PRN 30 tabs 0RF anxiety Discontinued sertraline Discontinued Reason: No Longer Medically Relevant 25 mg PO DAILY 30 days 30 tabs 1RF F32.0 - Major depressive disorder, single episode, mild Quality Reporting (2019) Fall Risk Screening ([facility] 139) Fall risk assessment: No Falls in past year Depression/Bipolar (159/160/161/177) PHQ-9: Total score: 11 Coding Level of Care Code Medicare First (G0438) Diagnoses Encounter for annual wellness exam in Medicare patient Z00.00 Mild major depression F32.0 Seizures R56.9 CPT Codes Advance Care Planning - Time spent: 1-15 minutes, on File ([id number]) Additional Codes REGGIE-7 Assessment Billing - REGGIE-7 Assessment Tool: REGGIE-7 Assessment 64794 ([id number]) Time Spent (min) 40 Advance Care Planning Advance Care Planning discussion: Completed/Scanned Date of discussion: 09/13/23 Who was present: patient and me Forms completed: MOLST Time spent: 1-15 minutes, on File Actual minutes spent: 5
== END 2023-09-13 08:23 | disposition home or self-care (01) ==
PROVIDERS: PCP Internal Medicine; Visit Provider Internal Medicine
DX: Z00.00 Encounter for general adult medical examination without abnormal findings (principal); F32.0 Major depressive disorder, single episode, mild; R56.9 Unspecified convulsions
CPT/HCPCS: 1123F; G0438; G0439

== ENCOUNTER 2023-11-28 07:59 | Emergency (ER) | payer MEDICARE, OTHER, SELFPAY ==
--- NOTE | ~2023-11-28 | XR_ITS ---
EXAMINATION: XR CHEST CLINICAL INFORMATION: Cough COMPARISON: Chest radiograph from 12/01/2018, CTA chest from 04/04/2019 TECHNIQUE: 2 views of the chest were obtained. FINDINGS: Chronic small to moderate left pleural effusion with subjacent atelectasis. Chronic small right pleural effusion with subjacent atelectasis. Biapical pleural parenchymal scarring. No pneumothorax. Trachea is midline. Sternotomy wires. Cardiac mediastinal silhouette is not enlarged. Trace atherosclerotic calcifications. Osseous structures are intact. Soft tissues are unremarkable. XR/XR chest 2V IMPRESSION: 1. Chronic small to moderate left pleural effusion with subjacent atelectasis. 2. Chronic small right pleural effusion with subjacent atelectasis. 3. Biapical pleural parenchymal scarring.
[2023-11-28 08:03] VITALS: BP 169/96; PULSE 77; RESP 18; TEMP 36.6; O2SAT 97; BMI 21.6
--- NOTE | 2023-11-28 08:09 | ECG_ITS ---
Test Reason : cough Blood Pressure : / mmHG Vent. Rate : 065 BPM Atrial Rate : 065 BPM P-R Int : 156 ms QRS Dur : 076 ms QT Int : 394 ms P-R-T Axes : 041 023 026 degrees QTc Int : 409 ms Normal sinus rhythm Possible Anterior infarct , age undetermined Abnormal ECG When compared with ECG of 04-APR-2019 19:25, No significant change was found Referred By: Generic ED Physician Electronically Signed By:YUMIKO ALVAREZ
[2023-11-28 09:03] LABS: Influenza A PCR NEGATIVE (Negative); Influenza B PCR NEGATIVE (Negative); Resp Syncy Virus RNA Qual PCR NEGATIVE (Negative); SARS COV2 PCR INHOUSE NEGATIVE (Negative)
[2023-11-28 09:51] LABS: MANUAL DIFF FLAG NO
[2023-11-28 09:53] LABS: Basophils Percent Auto 0.3 % (0-2); Eosinophils Absolute Auto 0.1 X10*3/uL (0.0-0.4); Hematocrit 42.5 % (42.0-52.0); Hemoglobin 14.4 g/dl (14.0-18.0); Imm Gran Abs Auto 0.04 X10*3/uL (0.00-0.03); Imm Gran Pct Auto 0.4 % (0.0-0.4); Lymphocytes Absolute Auto 1.6 X10*3/uL (1.2-4.9); Lymphocytes Percent Auto 16.8 % (20-40); Mean Corpuscular HGB Conc 33.9 g/dl (31.0-36.0); Mean Corpuscular Hemoglobin 34.1 pg (27.0-33.0); Mean Corpuscular Volume 100.7 fL (80.0-98.0); Mean Platelet Volume 10.1 fL (9.4-12.4); Monocytes Percent Auto 10.5 % (2-11); Neutrophils Absolute Auto 6.8 x10*3/uL (2.0-8.3); Platelet Count 217 X10*3/uL (160-400); Red Blood Count 4.22 X10*6/uL (4.60-5.80); Red Cell Distribution Width 12.4 % (11.0-16.0); White Blood Count 9.6 X10*3/uL (4.8-10.8)
[2023-11-28 10:06] LABS: Partial Thromboplastin Time 27.3 SEC (26.0-36.8)
[2023-11-28 10:07] LABS: Alanine Aminotransferase 14 U/L (0-40); Albumin Level 4.1 g/dL (3.5-5.0); Alkaline Phosphatase 51 U/L (39-117); Anion Gap 12 (12-20); Aspartate Amino Transferase 19 U/L (5-37); Bilirubin Total 0.9 mg/dL (0.0-1.0); Blood Urea Nitrogen 10 mg/dL (9-16); Calcium 9.1 mg/dL (8.4-10.2); Carbon Dioxide 28 mmol/L (22-29); Chloride 107 mmol/L (96-108); Creatinine Clr Calc Pharmacy 53.3; Estimated Glomerular Filt Rate > 60; Glucose Random 102 mg/dL (60-115); Potassium 4.9 mmol/L (3.3-5.1); Sodium 142 mmol/L (135-145); Total Protein 7.1 g/dL (6.5-8.0)
[2023-11-28 10:18] LABS: Troponin-I High Sensitivity < 2.7 ng/L (<3.5-35.0)
--- NOTE | 2023-11-28 11:00 | ED.URI ---
HPI - URI/Sore Throat General Chief Complaint: Upper Respiratory Symptoms Stated Complaint: cold heavy chest cough Time Seen by Provider: 11/28/23 08:24 Source: patient Mode of arrival: ambulatory Limitations: no limitations History of Present Illness ED Provider: Dr. Aguila Szymanski HPI Narrative: 83-year-old male with a history of hypertension, coronary disease, GERD, depression, seizures, CABG who presents emergency department for evaluation of cough x2 weeks. Patient states that his cough is gotten worse over the past several days. He states he is coughing up thick yellow phlegm with no blood in the sputum. He states he has also been sneezing. He is complaining of chest pain which is worse with breathing and with sneezing. He states he has been feeling very fatigued. Patient had subjective fever and chills. He complained of rhinorrhea and dyspnea on exertion. He denied nausea, vomiting, diarrhea, frequency, dysuria, myalgias arthralgias Related Data Home Medications ?Medication ?Instructions ?Recorded ?Confirmed levetiracetam 500 mg tablet 500 mg PO BID 02/07/20 09/13/23 aspirin 81 mg tablet,delayed 81 mg PO DAILY 05/21/20 09/13/23 release sacubitril 24 mg-valsartan 26 mg 1 tab PO BID 05/25/21 09/13/23 tablet (Entresto) Previous Rx's ?Medication ?Instructions ?Recorded pantoprazole 40 mg tablet,delayed 40 mg PO DAILY 90 days #90 tabs 07/20/22 release tamsulosin 0.4 mg capsule 0.4 mg PO DAILY 90 days #90 caps 01/12/23 metoprolol succinate 25 mg 25 mg PO DAILY 90 days #90 tabs 07/08/23 tablet,extended release 24 hr amlodipine 5 mg tablet 5 mg PO DAILY 90 days #90 tabs 08/04/23 alprazolam 0.5 mg tablet 0.5 mg PO BID PRN anxiety 30 days 09/13/23 #30 tabs sertraline 50 mg tablet 50 mg PO DAILY 90 days #90 tabs 09/13/23 doxycycline monohydrate 100 mg 100 mg PO Q12H #14 caps 11/28/23 capsule Allergies Allergy/AdvReac Type Severity Reaction Status Date / Time No Known Allergies Allergy Mild NOT Verified 11/28/23 08:07 APPLICABLE Review of Systems Review of Systems: Yes all other systems are reviewed and are negative [facility] Past Medical History [facility] Narrative: Social history: Patient denies tobacco use. He states that he smoked cigarettes when he was a teenager for only a few years. He denies alcohol and drug use. Medical History Abnormal nuclear stress test Myocardial ischemia History of stroke Seizures Iron deficiency GERD (gastroesophageal reflux disease) CAD (coronary artery disease) of artery bypass graft Surgical History History of colonoscopy Hx of CABG History of lumbar surgery Family History Family History Father Myocardial infarction Mother Diabetes Hypertension Social History Social History Household Members: Spouse Housing: House Are you a primary direct care worker to a significant other at home: No Do you presently have visiting nurse or other home services: No Alcohol intake: current Alcohol intake frequency: a few times a month Alcohol type: beer Patient Tobacco Use Status: Former Tobacco user e-Cigarette/Vaping Use: Never Used Advance Directives: No Advance Directives Information Provided: Yes service: No Current occupational status: retired Current occupation: [employer] Cognitive needs: No Hearing needs: No Vision needs: No Physical Exam Vital Signs: Vital Signs: Last Vital Signs Temp 97.9 F 11/28/23 08:03 Pulse 67 11/28/23 11:12 Resp 16 11/28/23 11:12 BP 177/100 H 11/28/23 11:12 Pulse Ox 96 11/28/23 11:12 O2 Del Method Room Air 11/28/23 11:12 BMI result Body Mass Index 21.6 Vital signs revealed an elevated blood pressure of 169/96 otherwise unremarkable Exam: General: Awake, alert in no distress Head: Normocephalic, atraumatic EENT: PERRL, Lids normal, sclera normal, conjunctiva normal, nose normal , ears normal, throat without erythema or exudates Neck: Supple, no adenopathy Lung: Breath sounds diminished at the left base compared to the right, no rales, no wheezing, no rhonchi Chest: symmetric movement, nontender Heart: regular rate and rhythm, normal S1, S2 no murmurs or rubs Abdomen: soft, non-tender, nondistended, normal bowel sounds Back: no vertebral tenderness, no CVAT Extremities: no deformities, moves all extremities symmetrically Neuro: Awake, alert, oriented, normal speech, cranial nerves intact, moves all extremities symmetrically Psych: Pleasant, cooperative Medical Decision Making Medical Decision Making [facility] Narrative: 83-year-old male with a history of hypertension, coronary disease, GERD, depression, seizures, CABG who presents emergency department for evaluation of cough x2 weeks the symptoms getting worse over the last several days. Patient's cough is productive of thick yellow sputum with no blood in the sputum, he was subjective fever, chills and rhinorrhea. Patient was having chest pain with breathing and with sneezing. Vital signs revealed elevated blood pressure. Lung exam revealed diminished breath sounds at left base compared to the right .Differential diagnosis: ?Includes but is not limited to pneumonia, bronchitis, viral syndrome, myocardial infarction, myocardial ischemia anemia, electrolyte abnormalities Following evaluation was ordered: CBC, CMP, PTT, troponin, EKG, COVID, RSV, influenza chest x-ray two view Course: 11:04 My independent interpretation patient's laboratory evaluation is as follows: WBC normal 9600 with a normal differential, no anemia with an elevated MCV of 100.7. PTT was normal. CMP was normal. Troponin was below detectable limits. COVID-19, influenza, RSV were negative. Lab Data [facility] Lab Attestation statement: I reviewed the patient's lab results. 11/28/23 09:46 11/28/23 09:46 Labs: Lab Results 11/28/23 11/28/23 Range/Units 08:17 09:46 WBC 9.6 (4.8-10.8) X10*3/uL RBC 4.22 L (4.60-5.80) X10*6/uL Hgb 14.4 (14.0-18.0) g/dl Hct 42.5 (42.0-52.0) % MCV 100.7 H (80.0-98.0) fL MCH 34.1 H (27.0-33.0) pg MCHC 33.9 (31.0-36.0) g/dl RDW 12.4 (11.0-16.0) % Plt Count 217 (160-400) X10*3/uL MPV 10.1 (9.4-12.4) fL Immature Gran % (Auto) 0.4 (0.0-0.4) % Neut % (Auto) 71.0 (45-73) % Lymph % (Auto) 16.8 L (20-40) % [place] % (Auto) 10.5 (2-11) % Eos % (Auto) 1.0 (0-4) % Baso % (Auto) 0.3 (0-2) % Lymph # (Auto) 1.6 (1.2-4.9) X10*3/uL [place] # (Auto) 1.0 (0.1-1.2) X10*3/uL Eos # (Auto) 0.1 (0.0-0.4) X10*3/uL Baso # (Auto) 0.0 (0.0-0.2) X10*3/uL Abs Immat Gran (auto) 0.04 H (0.00-0.03) X10*3/uL Absolute Neuts (auto) 6.8 (2.0-8.3) x10*3/uL Absolute Nucleated RBC 0.000 (0.0-0.012) X10*3/uL Nucleated RBC % (auto) 0.0 (0.0-0.2) /100WBC APTT 27.3 (26.0-36.8) SEC Sodium 142 (135-145) mmol/L Potassium 4.9 (3.3-5.1) mmol/L Chloride 107 (96-108) mmol/L Carbon Dioxide 28 (22-29) mmol/L Anion Gap 12 (12-20) BUN 10 (9-16) mg/dL Creatinine 1.06 (0.5-1.4) mg/dL Estim Creat Clear Calc 53.3 Estimated GFR > 60 Random Glucose 102 (60-115) mg/dL Calcium 9.1 (8.4-10.2) mg/dL Total Bilirubin 0.9 (0.0-1.0) mg/dL AST 19 (5-37) U/L ALT 14 (0-40) U/L Alkaline Phosphatase 51 (39-117) U/L Troponin I High Sens < 2.7 (<3.5-35.0) ng/L Total Protein 7.1 (6.5-8.0) g/dL Albumin 4.1 (3.5-5.0) g/dL Influenza Type A (PCR) NEGATIVE (Negative) Influenza Type B (PCR) NEGATIVE (Negative) RSV RNA Qual (PCR) NEGATIVE (Negative) SARS-CoV-2 RNA (RT-PCR) NEGATIVE (Negative) Independent Interpretation I performed an independent interpretation of an: EKG and Plain X-Ray Interpretation: My independent interpretation patient's 12 EKG done at 08:09 hours is as follows: Normal sinus rhythm rate of 65, normal MA interval, QRS duration QTC interval, no ST segment elevation, no ST segment depression, Q-wave in 3 and V1 with poor R-wave progression. Compared to EKG dated 04/05/2019, Q-wave in 3 is new, Q-wave in V1 is old, poor R-wave progression is old. Radiology Impression Discussion of test interpretation with radiology: I have reviewed the radiologist's reading. Radiologist Impression: XR chest 2V IMPRESSION: 1. Chronic small to moderate left pleural effusion with subjacent atelectasis. 2. Chronic small right pleural effusion with subjacent atelectasis. 3. Biapical pleural parenchymal scarring. Dictated By: Radha Rizo MD Discharge Plan Discharge Clinical Impression: Acute bronchitis Patient Disposition: Home, Self-Care Instructions: Acute Bronchitis (ED) Additional Instructions: Your blood work was normal. Your EKG was unremarkable. Your COVID-19, influenza and RSV were negative. Your chest x-ray did reveal scarring at the bases of your lungs, according the radiologist this is unchanged compared to a chest x-ray that you had an 12/05/[address] scan that you had in March of 2019. Take doxycycline 100 mg, 1 pill every 12 hours for 7 days Take extra-strength Tylenol 500 mg pills, 1 pill every 6 hours as needed for pain or fever. Follow-up with your doctor in 2 days. Please return to the emergency department if your symptoms get worse or if you develop any symptoms that are concerning to you. Prescriptions: New doxycycline monohydrate 100 mg capsule 100 mg PO Q12H Qty: 14 0RF No Action pantoprazole 40 mg tablet,delayed release (DR/EC) 40 mg PO DAILY 90 Days Qty: 90 3RF tamsulosin 0.4 mg capsule 0.4 mg PO DAILY 90 Days Qty: 90 1RF metoprolol succinate 25 mg tablet extended release 24 hr 25 mg PO DAILY 90 Days Qty: 90 3RF amlodipine 5 mg tablet 5 mg PO DAILY 90 Days Qty: 90 3RF Entresto 24-26 mg Tablet 1 tab PO BID aspirin 81 mg tablet,delayed release (DR/EC) 81 mg PO DAILY levetiracetam 500 mg tablet 500 mg PO BID sertraline 50 mg tablet 50 mg PO DAILY 90 Days Qty: 90 1RF alprazolam 0.5 mg tablet 0.5 mg PO BID PRN (Reason: anxiety) 30 Days Qty: 30 0RF Print Language: Fijian
[2023-11-28 11:12] VITALS: BP 177/100; PULSE 67; RESP 16; O2SAT 96
[2023-11-28 11:37] VITALS: BP 177/100; PULSE 67; RESP 16; TEMP 36.6; O2SAT 96
== END 2023-11-28 11:37 | disposition home or self-care (01) ==
PROVIDERS: Emergency Provider Emergency Medicine Emergency Medical Services; PCP Internal Medicine
DX: J20.9 Acute bronchitis, unspecified (principal); R05.9 Cough, unspecified; R11.2 Nausea with vomiting, unspecified; M79.10 Myalgia, unspecified site; R06.02 Shortness of breath; I25.10 Atherosclerotic heart disease of native coronary artery without angina pectoris; Z03.818 Encounter for observation for suspected exposure to other biological agents ruled out; Z87.891 Personal history of nicotine dependence; Z79.899 Other long term (current) drug therapy
CPT/HCPCS: 0241U; 36415; 71046; 80053; 84484; 85025; 85730; 93005; 99283; 99284

== ENCOUNTER → 2023-11-28 08:09 | Outpatient (BNV) | payer MEDICARE, OTHER, SELFPAY | PROVIDERS: Emergency Provider Emergency Medicine Emergency Medical Services; PCP Internal Medicine; Visit Provider Internal Medicine | DX: R94.31 Abnormal electrocardiogram [ECG] [EKG] (principal) | CPT/HCPCS: 93010 ==

== ENCOUNTER 2023-12-06 09:55 | Outpatient (AMB) | payer MEDICARE, OTHER, SELFPAY ==
--- NOTE | 2023-12-06 09:56 | A.OFFPC_ITS ---
Vital Signs 12/06/23 09:57 Height 5 ft 11 in Weight 156 lb BMI 21.8 BP 120/62 Blood Pressure Location Lt brachial Position Sitting Intake [place] [facility] [place] acute bronchitis Hand Touch Up Painter Required: No Accompanied by: Self / Same As Patient Allergies No Known Allergies Allergy (Mild, Verified 12/06/23 10:21) NOT APPLICABLE Medication List - Last Reconciled 12/06/23 by Emmanuelle Swain MD alprazolam 0.5 mg PO BID PRN 30 days amlodipine 5 mg PO DAILY 90 days aspirin 81 mg PO DAILY levetiracetam 500 mg PO BID metoprolol succinate ER 25 mg PO DAILY 90 days pantoprazole 40 mg PO DAILY 90 days sacubitril-valsartan 24-26 mg (Entresto) 1 tab PO BID sertraline 50 mg PO DAILY 90 days tamsulosin 0.4 mg PO DAILY 90 days Tobacco use date assessed: 12/06/23 Fall risk assessment: No Falls in past year Last assessed Fall Risk: 12/06/23 Dental Screening Dental Screen Date: 12/06/23 Did you have a dental visit in the last 12 months?: No Did you have a dental problem in the last 6 months where you did not have access to dental care?: No Was dental information given to patient?: Patient has dentist HPI HPI Comments History of Present Illness Details This is an 83-year-old male with seizures, GERD and mild major depression that comes today as hospital discharge follow-up with discharge date 11/28/2023 due to acute bronchitis. Had chest x-ray showing bilateral pleural effusions and chest x-ray will be repeated. Was given doxycycline and feels markedly improved. No chest pain, shortness of breath, cough or fever. Has not had a seizure in over 6 months. GERD stable with PPIs. Depression improved with SSRIs. [facility] Medical History (Updated 12/06/23 @ 10:25 by Emmanuelle Swain MD) Abnormal nuclear stress test Myocardial ischemia History of stroke Seizures Iron deficiency GERD (gastroesophageal reflux disease) CAD (coronary artery disease) of artery bypass graft Surgical History History of colonoscopy Hx of CABG History of lumbar surgery Family History Father Myocardial infarction Mother Diabetes Hypertension Social History Household Members: Spouse Housing: House Are you a primary pediatric critical care nurse to a significant other at home: No Do you presently have visiting nurse or other home services: No Alcohol intake: current Alcohol intake frequency: a few times a month Alcohol type: beer Patient Tobacco Use Status: Former Tobacco user e-Cigarette/Vaping Use: Never Used Advance Directives Date on File: 11/28/23 service: No Current occupational status: retired Current occupation: [employer] Cognitive needs: No Hearing needs: No Vision needs: No Questionnaire Thrive Questionnaire Date Thrive assessed: 09/13/23 REGGIE-7 AMB Questionnaire REGGIE-7 Date REGGIE - 7 assessed: 09/13/23 Source: Developed by Drs. Lex Dempsey, Sonia Mead, Yang Martinez and colleagues, with an educational eula from [employer]. Review of Systems Const All systems reviewed & are unremarkable except as noted in HPI and below Card Denies chest pain at rest, Denies chest pain with activity, Denies edema, Denies irregular heart rhythm, Denies claudication, Denies dyspnea, Denies dyspnea on exertion, Denies orthopnea, Denies paroxysmal nocturnal dyspnea and Denies slow heart rate Resp Denies cough, Denies dyspnea and Denies dyspnea on exertion GI Denies abdominal pain, Denies change in bowel habits, Denies excessive flatus, Denies nausea and Denies vomiting Denies urinary hesitancy, Denies urinary incontinence and Denies urinary urgency Musc Denies abnormal gait, Denies atrophy, Denies deformity and Denies limited range of motion Skin/Breast Denies bleeding lesions, Denies changing lesions and Denies rash Neuro Denies abnormal gait and Denies lack of coordination Physical exam (Primary Care) Vital Signs: Last Vital Signs BP 120/62 12/06/23 09:57 BMI result Body Mass Index 21.8 Tobacco/Smoking Status: Tobacco use Status Tobacco use date assessed 12/06/23 12/06/23 10:02 Patient Tobacco Use Status Former Tobacco user 12/06/23 10:02 e-Cigarette/Vaping Use Never Used 12/06/23 10:02 Thrive Assessment: Date of Thrive Assessment Date Thrive assessed 09/13/23 12/06/23 10:02 Resp Effort & Inspection: normal respiratory effort Auscultation: clear to auscultation bilaterally Cardio Jugular venous distension: no JVD Rate: regular rate Rhythm: regular rhythm Heart sounds: S1 normal heart sound present and S2 normal heart sound present Extrem General: Yes full ROM Assessment and Plan Assessment & Plan (1) Pleural effusion: Code(s): J90 - Pleural effusion, not elsewhere classified Plan: Repeat chest x-ray. (2) Mild major depression: Code(s): F32.0 - Major depressive disorder, single episode, mild Plan: Continue SSRIs. (3) Seizures: Code(s): R56.9 - Unspecified convulsions Plan: Continue Keppra. (4) GERD (gastroesophageal reflux disease): Code(s): K21.9 - Gastro-esophageal reflux disease without esophagitis Qualifiers: Esophagitis presence: esophagitis presence not specified Qualified Code(s): K21.9 - Gastro-esophageal reflux disease without esophagitis Plan: Continue PPIs. Orders: Orders XR chest 2V Today J90 - Pleural effusion, not elsewhere classified Coding Level of Care Code Est Pt Level 4 (67988) Complex EM visit Add On G2211 Diagnoses Pleural effusion J90 Mild major depression F32.0 Seizures R56.9 Gastroesophageal reflux disease, unspecified whether esophagitis present K21.9 Esophagitis presence: esophagitis presence not specified Time Spent (min) 21
[2023-12-06 09:57] VITALS: BP 120/62; BMI 21.8
== END 2023-12-06 10:34 | disposition home or self-care (01) ==
PROVIDERS: PCP Internal Medicine; Visit Provider Internal Medicine
DX: J90 Pleural effusion, not elsewhere classified (principal); F32.0 Major depressive disorder, single episode, mild; R56.9 Unspecified convulsions; K21.9 Gastro-esophageal reflux disease without esophagitis
CPT/HCPCS: 99214; G2211

== ENCOUNTER 2023-12-13 07:03 | Outpatient (REF) | payer MEDICARE, OTHER, SELFPAY ==
--- NOTE | ~2023-12-13 | XR_ITS ---
EXAMINATION: XR CHEST CLINICAL INFORMATION: Pleural effusion COMPARISON: 11/28/2023 TECHNIQUE: 2 views of the chest were obtained. FINDINGS: No significant change bilateral small pleural effusions , left greater than right, and associated atelectasis. Heart and mediastinum within normal limits. Median sternotomy wires again seen. Underlying hyperinflation with biapical pleural thickening. Flowing osteophytes and mild vertebral body height losses thoracic spine. XR/XR chest 2V IMPRESSION: No significant change bilateral small pleural effusions and associated atelectasis. Electronically signed by: Kaylan Jiménez MD 12/13/2023 09:51 AM EDT
== END 2023-12-13 07:04 | disposition home or self-care (01) ==
LOC: HO.XRAY 07:03
PROVIDERS: PCP Internal Medicine; Visit Provider Internal Medicine
DX: J90 Pleural effusion, not elsewhere classified (principal)
CPT/HCPCS: 71046

== ENCOUNTER 2023-12-23 07:31 | Outpatient (REF) | payer MEDICARE, OTHER, SELFPAY ==
--- NOTE | ~2023-12-23 | CT_ITS ---
EXAMINATION: CT CHEST WITHOUT CONTRAST CLINICAL INFORMATION: Pleural effusion. COMPARISON: CT dated April 04, 2019. Correlated to x-ray dated December 13, 2023. TECHNIQUE: Multidetector volumetric CT imaging of the chest was done. Axial MIP volume rendering provided. Sagittal and coronal reformatted images were obtained. This CT examination was performed using dose optimization techniques as appropriate, variously including the following: *Automated exposure control *Adjustment of mA and/or kV according to patient size (this includes techniques or standardized protocols for targeted exams where dose is matched to indication/reason for exam; i.e. extremities or head) *Use of iterative reconstruction technique DLP: 113 mGy-cm FINDINGS: Submitted for interpretation on March 02, 2024. Left-sided, moderate volume, pleural effusion/fluid density collection, with a visceral and parietal hyperdense thickness/capsular. Pulmonary patchy groundglass in the periphery of the left lower lung lobe and lingula. There are associated linear attenuation abnormalities in the lingula and left lung base as well as the right lung base and right middle lobe. Apical lung scarring bilaterally. Pulmonary patchy groundglass in the periphery of the right lower lobe. No bronchiectasis. No honeycombing. Respiratory airways patent. No gross pulmonary nodules. Sternal wires and vascular clips in the mediastinum likely related to prior CABG procedure. Calcified plaques throughout the thoracic aorta.] And the coronary arteries. No aneurysm in the thoracic aorta. Nonspecific prominent 9 mm precarinal lymph node. No pericardial effusion. No pneumothorax. Prominent with fatty hilum lymph nodes in the axilla bilaterally. Hilar hernia, small to moderate size. Calcified plaques in the abdominal aorta wall and the origin of the included mesenteric arteries and the splenic artery.. CT/CT chest wo IV con IMPRESSION: Concerning loculated left pleural fluid collection/empyema. Acute on chronic inflammatory process cannot be excluded. Malignancy cannot be excluded. Fleischner guidelines were followed. Electronically signed by: Alvaro Conklin MD 03/02/2024 12:35 PM EST
== END 2023-12-23 07:32 | disposition home or self-care (01) ==
LOC: HO.CT 07:31
PROVIDERS: PCP Internal Medicine; Visit Provider Internal Medicine
DX: J90 Pleural effusion, not elsewhere classified (principal)
CPT/HCPCS: 71250

== ENCOUNTER → 2023-12-23 07:33 | Outpatient (BNV) | payer MEDICARE, OTHER, SELFPAY | PROVIDERS: PCP Internal Medicine; Visit Provider Radiology Diagnostic Radiology | DX: J90 Pleural effusion, not elsewhere classified (principal) | CPT/HCPCS: 71250 ==

== ENCOUNTER 2024-02-01 07:46 | Outpatient (AMB) | payer MEDICARE, OTHER, SELFPAY ==
--- NOTE | 2024-02-01 07:51 | A.OFFPC_ITS ---
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 Accompanied by: Self / Same As Patient Allergies No Known Allergies Allergy (Mild, Verified 02/01/24 08:09) NOT APPLICABLE Medication List - Last Reconciled 02/01/24 by Emmanuelle Swain MD amlodipine 5 mg PO DAILY 90 days aspirin 81 mg PO DAILY levetiracetam 500 mg PO BID metoprolol succinate ER 25 mg PO DAILY 90 days sacubitril-valsartan 24-26 mg (Entresto) 1 tab PO BID sertraline 50 mg PO DAILY 90 days Tobacco use date assessed: 12/06/23 Fall risk assessment: No Falls in past year Dental Screening Dental Screen Date: 02/01/24 Did you have a dental visit in the last 12 months?: No Did you have a dental problem in the last 6 months where you did not have access to dental care?: No Was dental information given to patient?: Patient has dentist HPI HPI Comments History of Present Illness Details This is an 84-year-old man with hypertension, seizures and mild major depression that comes today for follow-up on his conditions. Blood pressure stable. Has not had a seizure in over 6 months and is compliant with all his medications. Depression has improved and he would like to decrease sertraline from 50 mg to 25 mg. Denies any chest pain or shortness on breath. [facility] Medical History (Updated 02/01/24 @ 08:33 by Emmanuelle Swain MD) Abnormal nuclear stress test Myocardial ischemia History of stroke Seizures Iron deficiency GERD (gastroesophageal reflux disease) CAD (coronary artery disease) of artery bypass graft Surgical History History of colonoscopy Hx of CABG History of lumbar surgery Family History Father Myocardial infarction Mother Diabetes Hypertension Social History Household Members: Spouse Housing: House Are you a primary home child care provider to a significant other at home: No Do you presently have visiting nurse or other home services: No Alcohol intake: current Alcohol intake frequency: a few times a month Alcohol type: beer Patient Tobacco Use Status: Former Tobacco user e-Cigarette/Vaping Use: Never Used Second Hand Smoke Exposure: No Advance Directives Date on File: 11/28/23 service: No Current occupational status: retired Current occupation: [employer] Cognitive needs: No Hearing needs: No Vision needs: Yes Questionnaire Thrive Questionnaire Date Thrive assessed: 09/13/23 Are you currently unemployed and looking for a job?: No REGGIE-7 AMB Questionnaire REGGIE-7 Date REGGIE - 7 assessed: 09/13/23 Source: Developed by Drs. Lex Dempsey, Sonia Mead, Yang Martinez and colleagues, with an educational eula from [employer]. Review of Systems Const All systems reviewed & are unremarkable except as noted in HPI and below Card Denies chest pain at rest, Denies chest pain with activity, Denies edema, Denies irregular heart rhythm, Denies claudication, Denies dyspnea, Denies dyspnea on exertion, Denies orthopnea, Denies paroxysmal nocturnal dyspnea and Denies slow heart rate Resp Denies cough, Denies dyspnea and Denies dyspnea on exertion GI Denies abdominal pain, Denies change in bowel habits, Denies excessive flatus, Denies nausea and Denies vomiting Neuro Denies behavioral changes Psych Denies behavioral changes Physical exam (Primary Care) Vital Signs: Last Vital Signs BP 110/58 L 02/01/24 07:52 BMI result Body Mass Index 21.6 Tobacco/Smoking Status: Tobacco use Status Tobacco use date assessed 12/06/23 02/01/24 07:59 Patient Tobacco Use Status Former Tobacco user 02/01/24 07:59 e-Cigarette/Vaping Use Never Used 02/01/24 07:59 Thrive Assessment: Date of Thrive Assessment Date Thrive assessed 09/13/23 02/01/24 07:59 Resp Effort & Inspection: normal respiratory effort Auscultation: clear to auscultation bilaterally Cardio Jugular venous distension: no JVD Rate: regular rate Rhythm: regular rhythm Heart sounds: S1 normal heart sound present and S2 normal heart sound present Neuro General: no focal motor deficits Extrem General: Yes full ROM Psych Appearance: grossly normal Office Procedures Flu Questionnaire Does the patient have a severe egg allergy?: No Does the patient have severe life threatening allergies?: No Does the patient have a fever or illness today?: No Has the patient ever had Guillain-[place] Syndrome?: No Has the patient ever had any past reaction to a flu shot?: No Immunizations Fluarix Triv [id number] (PF) 45 mcg (15 mcg x 3)/0.5 mL IM syringe Performing Provider: Emmanuelle Swain MD [place] [facility] [place] [facility] Administered by: JUAN CARLOS Plascencia on 02/01/24 08:22 Dose Route Admin Location Dispensed Lot Number Expiration Date NDC Nurse Case Management 0.5 mL IM Left Deltoid 0.5 mL [id number] 10/15/24 11136-231-31 [employer] VIS Given Date VIS Provided VIS Publication Date 02/01/24 Single Vaccine 20 Eligibility Eligibility Date Funding Source Not [facility] Eligible 02/01/24 Private Coding Level of Care Code Est Pt Level 3 (35844) Complex EM visit Add On G2211 Diagnoses Mild major depression F32.0 Seizures R56.9 Primary hypertension I10 Hypertension type: primary hypertension Time Spent (min) 19 Assessment & Plan Assessment & Plan (1) Mild major depression: Code(s): F32.0 - Major depressive disorder, single episode, mild Category: Medical Plan: Decrease sertraline to 25 mg. (2) Seizures: Code(s): R56.9 - Unspecified convulsions Category: Medical Plan: Continue Keppra. (3) Hypertension: Code(s): I10 - Essential (primary) hypertension Category: Medical Qualifiers: Hypertension type: primary hypertension Qualified Code(s): I10 - Essential (primary) hypertension Plan: Continue Entresto and amlodipine. Blood pressure goal is equal or less than 130/80. Orders: Orders Lipid Panel 8 Months I10 - Essential (primary) hypertension Influenza [id number] Immunization Today Z23 - Encounter for immunization Comprehensive [place]. Panel Fast 8 Months I10 - Essential (primary) hypertension Medications: New sertraline 25 mg PO DAILY 90 days 90 tabs 3RF Discontinued sertraline Discontinued Reason: Patient Completed Course 50 mg PO DAILY 90 days 90 tabs 1RF
[2024-02-01 07:52] VITALS: BP 110/58; BMI 21.6
== END 2024-02-01 08:24 | disposition home or self-care (01) ==
PROVIDERS: PCP Internal Medicine; Visit Provider Internal Medicine
DX: F32.0 Major depressive disorder, single episode, mild (principal); R56.9 Unspecified convulsions; I10 Essential (primary) hypertension; Z23 Encounter for immunization

== ENCOUNTER → 2024-02-01 07:46 | Outpatient (BNVA) | payer MEDICARE, OTHER, SELFPAY | PROVIDERS: PCP Internal Medicine; Visit Provider Internal Medicine | DX: Z23 Encounter for immunization (principal); F32.0 Major depressive disorder, single episode, mild; R56.9 Unspecified convulsions; I10 Essential (primary) hypertension | CPT/HCPCS: 90471; 90656; 99212 ==

== ENCOUNTER 2024-03-19 10:20 | Outpatient (AMB) | payer MEDICARE, OTHER, SELFPAY ==
[2024-03-19 10:23] VITALS: BP 132/78; PULSE 74; O2SAT 93; BMI 21.8
--- NOTE | 2024-03-19 10:23 | MHC.OFFVIS ---
Vital Signs 03/19/24 10:23 Height 5 ft 11 in Weight 156 lb 8.451 oz BMI 21.8 BP 132/78 Blood Pressure Location Lt brachial Position Sitting Pulse 74 Pulse Source Pulse Oximeter Pulse Oximetry (%) 93 Oxygen Delivery Method Room Air Intake Visit Reasons: abnormal CT Allergies No Known Allergies Allergy (Mild, Verified 03/19/24 10:26) NOT APPLICABLE HPI HPI abnormal CT: Details: Christopher is a pleasant 83-year-old male, former minimal smoker with less than 10 pyh, with a history of hypertension, coronary disease, GERD, depression, seizures, CA, CAD, CABG Atrial fibrillation and anemia. He was referred by PCP for pulmonary evaluation for persistent pleural effusion. He recently had chest CT which revealed moderate loculated LLL pleural effusion, compared to prior chest CT 2020 appears minimally unchanged. He reports ongoing cough for the last few months that has been unchanged with associated dyspnea with moderate exertion. He was treated with doxycyline in November with minimal change in symptoms. He denies chest congestion or wheezing. He denies fevers chills or weight loss. He denies prior h/o recurrent URI. He denies h/o asthma. He reports son with asthma and h/o empyema. He denies occupational exposures including asbestos. He reports possible TB exposure in his teens. He is under the care of [facility]. [facility] Medical History Abnormal nuclear stress test Myocardial ischemia History of stroke Seizures Iron deficiency GERD (gastroesophageal reflux disease) CAD (coronary artery disease) of artery bypass graft Surgical History History of colonoscopy Hx of CABG History of lumbar surgery Family History Father Myocardial infarction Mother Diabetes Hypertension Social History Household Members: Spouse Housing: House Are you a primary healthcare advisory services manager to a significant other at home: No Do you presently have visiting nurse or other home services: No Alcohol intake: current Alcohol intake frequency: a few times a month Alcohol type: beer Patient Tobacco Use Status: Former Tobacco user e-Cigarette/Vaping Use: Never Used Second Hand Smoke Exposure: No Advance Directives Date on File: 11/28/23 service: No Current occupational status: retired Current occupation: [employer] Cognitive needs: No Hearing needs: No Vision needs: Yes Review of Systems Const Denies chills, Denies excessive sweating, Denies fever(s), Denies headache(s) and Denies night sweats Eyes Denies dry eyes, Denies irritation and Denies itchy eyes ENT Reports Normal hearing present, Denies headache(s), Denies nasal congestion, Denies nasal discharge, Denies post nasal drip and Denies sore throat Card Denies chest pain, Denies chest pain at rest, Denies chest pain with activity, Denies claudication, Denies leg edema, Denies orthopnea and Denies paroxysmal nocturnal dyspnea Resp Denies chest congestion, Denies excessive phlegm production, Denies pain on inspiration, Denies pain with cough, Denies stridor and Denies wheezing Musc Denies myalgias Neuro Reports Normal hearing present and Denies headache(s) Endo Denies excessive sweating Constantino/Lymph Denies lymphadenopathy Aller/Immun Denies itchy eyes, Denies seasonal rhinorrhea and Denies wheezing Physical Exam Vital Signs: Last Vital Signs Pulse 74 03/19/24 10:23 BP 132/78 03/19/24 10:23 Pulse Ox 93 03/19/24 10:23 Oxygen Delivery Method Room Air 03/19/24 10:23 BMI result Body Mass Index 21.8 Const General: cooperative, healthy appearing, comfortable, no acute distress, well developed and alert Orientation/consciousness: patient oriented x3 Limitations: no limitations HEENT Head: Yes normal to inspection, Yes normocephalic and Yes atraumatic Ears: hearing grossly normal bilaterally and external ears normal Eyes General: appearance normal, both eyes and all related structures Eyelids: Yes eyelids normal Sclerae: sclerae normal EOM: EOMs intact bilaterally Neck Neck: Yes normal visual inspection and Yes no lymphadenopathy Lymphatic: no lymphadenopathy noted Chest Chest palpation & inspection: normal inspection of the chest Resp Other: diminished lung sounds of LLL. Effort & Inspection: normal respiratory effort, able to speak in complete sentences, no audible wheezes, no cough, no stridor, not tachypneic, no tripod positioning and no use of accessory muscles Cardio Jugular venous distension: no JVD Rate: regular rate Rhythm: regular rhythm Skin Other: warm, dry General skin exam: no rashes or lesions noted Neuro General: patient oriented x3 Cranial nerves: Yes Normal hearing present Cognition (Neuro): normal cognition Gait exam (Neuro): Normal gait present Extrem General: Yes normal to inspection, Yes capillary refill normal, Yes no clubbing, cyanosis or edema and Yes no pedal edema Psych Appearance: grossly normal and well kempt Speech and movement: Normal speech and movement present and Clear speech present Affect: normal affect Attitude: cooperative Thought process: Normal thought process present Thought content: Normal thought content present Insight: Good insight present (Psych) Judgement: Good judgement present (Psych) Results Reviewed Results Reviewed: [address] [address] [address] Scan Report Signed Patient: Parviz Null MR#: [id number] : 1940 Acct:[id number] Age/Sex: 83 / M ADM Date: 12/23/23 Loc: HO.CT Attending Dr: Emmanuelle Swain MD Ordering Physician: Emmanuelle Castle MD Date of Service: 12/23/23 Procedure(s): CT chest wo IV con Accession Number(s): [id number] cc: Emmanuelle Castle MD~ EXAMINATION: CT CHEST WITHOUT CONTRAST CLINICAL INFORMATION: Pleural effusion. COMPARISON: CT dated April 04, 2019. Correlated to x-ray dated December 13, 2023. TECHNIQUE: Multidetector volumetric CT imaging of the chest was done. Axial MIP volume rendering provided. Sagittal and coronal reformatted images were obtained. This CT examination was performed using dose optimization techniques as appropriate, variously including the following: *Automated exposure control *Adjustment of mA and/or kV according to patient size (this includes techniques or standardized protocols for targeted exams where dose is matched to indication/reason for exam; i.e. extremities or head) *Use of iterative reconstruction technique DLP: 113 mGy-cm FINDINGS: Submitted for interpretation on March 02, 2024. Left-sided, moderate volume, pleural effusion/fluid density collection, with a visceral and parietal hyperdense thickness/capsular. Pulmonary patchy groundglass in the periphery of the left lower lung lobe and lingula. There are associated linear attenuation abnormalities in the lingula and left lung base as well as the right lung base and right middle lobe. Apical lung scarring bilaterally. Pulmonary patchy groundglass in the periphery of the right lower lobe. No bronchiectasis. No honeycombing. Respiratory airways patent. No gross pulmonary nodules. Sternal wires and vascular clips in the mediastinum likely related to prior CABG procedure. Calcified plaques throughout the thoracic aorta.] And the coronary arteries. No aneurysm in the thoracic aorta. Nonspecific prominent 9 mm precarinal lymph node. No pericardial effusion. No pneumothorax. Prominent with fatty hilum lymph nodes in the axilla bilaterally. Hilar hernia, small to moderate size. Calcified plaques in the abdominal aorta wall and the origin of the included mesenteric arteries and the splenic artery.. CT/CT chest wo IV con IMPRESSION: Concerning loculated left pleural fluid collection/empyema. Acute on chronic inflammatory process cannot be excluded. Malignancy cannot be excluded. Fleischner guidelines were followed. Electronically signed by: Alvaro Conklin MD 03/02/2024 12:35 PM [facility] [place]: CT ANGIOGRAM OF THE CHEST CT OF THE ABDOMEN AND PELVIS WITH CONTRAST INDICATION: Pleuritic chest pain. Abnormal liver function tests. COMPARISON: Multiple prior chest radiographs, most recently from 12/01/2018. TECHNIQUE: 71 mL of Omnipaque 350 IV contrast was utilized. Multidetector helical imaging was performed through the chest per PE protocol. Coronal, sagittal, and MIP images of the chest were created. In addition, multidetector helical imaging was performed through the abdomen and pelvis. Coronal and sagittal reformatted images were created at the technologist workstation. DLP: 529 mGy-cm FINDINGS: QUALITY OF STUDY/CONTRAST BOLUS: Satisfactory. PULMONARY ARTERIES: No central or segmental pulmonary emboli. THORACIC AORTA: The thoracic aorta is of normal contour and caliber with mild calcific atherosclerotic disease. No evidence for dissection. Status post median sternotomy for CABG. LUNG: Chronic small to moderate left-sided pleural effusion with thickened and hyperemic split pleura. Trace right-sided pleural effusion, also with thickened and hyperemic pleura. Associated bibasilar dependent consolidation. Moderate underlying centrilobular emphysema. Scattered 0.2-0.4 cm calcified granulomas. No suspicious focal nodular opacities. No pneumothorax. The airways largely remain patent. MEDIASTINUM: Status post CABG. Coronary artery calcifications. Normal heart size. No pericardial effusion. No hilar or mediastinal lymphadenopathy. No evidence of septal bowing or right heart strain. CHEST WALL/AXILLA: No axillary or internal mammary lymphadenopathy. Abdomen/Pelvis: Liver, Biliary Ducts, and Gallbladder: The liver is normal in size and attenuation without focal hepatic lesions or biliary ductal dilatation. The gallbladder is physiologically distended with moderate wall thickening and pericholecystic fluid. Small dependently layering calcified gallstones. The common bile duct measures up to 0.5 cm in diameter. No periampullary lesions demonstrated. Pancreas: The pancreas is normal in appearance. Adrenal Glands: The adrenal glands are normal in appearance. Spleen: The spleen is normal in appearance. Kidneys and Ureters: The kidneys demonstrate symmetric nephrograms without evidence of nephrolithiasis or hydronephrosis. No ureterolithiasis or hydroureter. Multiple subcentimeter hypoattenuating foci within both kidneys that are too small to characterize by CT but statistically benign in etiology. Urinary Bladder: The urinary bladder is moderately distended without focal wall thickening. No bladder calculi are noted. Gastrointestinal System: The stomach is mildly distended, presumably with ingested material. The small bowel is of normal caliber without regions of abnormal wall enhancement. Moderate diverticulosis of the descending and sigmoid colon without evidence of diverticulitis. Otherwise, the colon is normal in appearance without focal wall thickening or pericolonic inflammatory change. Normal appendix. Genitourinary: The prostate gland and seminal vesicles are normal in appea ance. Intra-abdominal and Retroperitoneal Spaces: There is a small volume of free fluid layering within the pelvis. No discrete intra-abdominal free fluid collections or gas. No mesenteric, retroperitoneal, or inguinal lymphadenopathy. Vasculature: Abdominal aorta is of normal contour and caliber with moderate calcific atherosclerotic disease. Musculoskeletal: Moderate multilevel degenerative changes of the spine. No lytic or sclerotic osseous lesions demonstrated. No soft tissue masses demonstrated. IMPRESSION: 1. No evidence for pulmonary embolism. 2. Chronic small left-sided and trace right pleural effusions with thickened/hyperemic pleura suggestive of a fibrin deposition. 3. Cholelithiasis. The gallbladder is wall thickened with moderate pericholecystic fluid. Recommend correlation with symptoms of cholecystitis. If clinically indicated, patency of the cystic duct can be further evaluated with nuclear medicine biliary scan. 4. Diverticulosis without evidence of diverticulitis. Assessment & Plan Assessment & Plan (1) Pleural effusion: Code(s): J90 - Pleural effusion, not elsewhere classified Category: Medical Plan Christopher presents for pulmonary evaluation of persistent pleural effusion minimally changed from prior chest CT 2020. Will send to IR for diagnostic thoracentesis to assess for any underlying malignancy or other etiologies for persistent pleural effusion. All questions were answered and patient is in agreement of plan. Will follow up to review results or sooner if needed. Orders: Orders Amylase Pleural Fluid Today J90 - Pleural effusion, not elsewhere classified Total Protein Pleural Fluid Today J90 - Pleural effusion, not elsewhere classified IR Drain Thoracentesis Today J90 - Pleural effusion, not elsewhere classified Albumin Pleural Fluid Today J90 - Pleural effusion, not elsewhere classified Cell Count w Diff Pleural Fld Today J90 - Pleural effusion, not elsewhere classified Glucose Pleural Fluid Today J90 - Pleural effusion, not elsewhere classified pH Pleural Fluid Today J90 - Pleural effusion, not elsewhere classified LDH Pleural Fluid Today J90 - Pleural effusion, not elsewhere classified Coding Level of Care Code New Pt Level 4 (50932) Diagnoses Pleural effusion J90
== END 2024-03-19 11:24 | disposition home or self-care (01) ==
PROVIDERS: PCP Internal Medicine; Visit Provider Nurse Practitioner Family
DX: J90 Pleural effusion, not elsewhere classified (principal)
CPT/HCPCS: 99204

== ENCOUNTER → 2024-03-19 10:20 | Outpatient (BNVA) | payer MEDICARE, OTHER, SELFPAY | PROVIDERS: PCP Internal Medicine; Visit Provider Nurse Practitioner Family | DX: J90 Pleural effusion, not elsewhere classified (principal) | CPT/HCPCS: 99202 ==

== ENCOUNTER 2024-07-02 07:43 | Outpatient (REF) | payer MEDICARE, OTHER, SELFPAY ==
--- NOTE | ~2024-07-02 | CT_ITS ---
CLINICAL HISTORY: J90 - Pleural effusion, not elsewhere classified CT chest without contrast Comparison: CT/SC/SR - CT CHEST WO IV CON - 12/23/23 07:44 EDT CR/SR - XR CHEST 2V - 12/13/23 07:28 EDT CR/SC/SR - XR CHEST 2V - 11/28/23 09:[address]/[place] [id number] - 04/04/19 22:25 EST Findings: No mediastinal mass or lymphadenopathy. No cardiomegaly. Severe calcified coronary artery disease status post CABG. Upper limit of normal size aortic root, measuring 3.9 cm. Upper limit of normal size ascending aorta, measuring 3.9 cm. Upper limit of normal size descending thoracic aorta, measuring 2.9 cm. Moderate calcified atherosclerotic disease. Mild biapical scarring with calcification. Scarring at the lung bases, greater on the left, with pulling of the bronchovascular bundles. Mild paraseptal and centrilobular emphysema with mild bronchial wall thickening. Calcified granuloma. No pneumothorax. Small left pleural effusion with pleural thickening, also present on the prior studies. No acute osseous or soft tissue abnormality. No acute pathology in the imaged portion of the upper abdomen. Small to moderate-sized hiatal hernia. Impression: Chronic small left pleural effusion with pleural thickening and scarring. This document has been electronically signed by: Chelle Nickerson MD on 07/02/2024 22:03:01
== END 2024-07-02 07:44 | disposition home or self-care (01) ==
LOC: HO.CT 07:43
PROVIDERS: PCP Internal Medicine; Visit Provider Nurse Practitioner Family
DX: J90 Pleural effusion, not elsewhere classified (principal)
CPT/HCPCS: 71250

== ENCOUNTER → 2024-07-02 07:45 | Outpatient (BNV) | payer MEDICARE, OTHER, SELFPAY | PROVIDERS: PCP Internal Medicine; Visit Provider Radiology Diagnostic Radiology | DX: J90 Pleural effusion, not elsewhere classified (principal) | CPT/HCPCS: 71250 ==

== ENCOUNTER 2024-09-20 10:24 | Outpatient (AMB) | payer MEDICARE, OTHER, SELFPAY ==
--- NOTE | 2024-09-20 10:37 | AM.OFFVISMDC ---
Intake Vital Signs 09/20/24 10:38 Height 5 ft 11 in Weight 157 lb BMI 21.9 BP 140/78 H Blood Pressure Location Lt brachial Position Sitting Intake Visit Reasons: medicare wellness Meat Counter Clerk Required: No Accompanied by: Self / Same As Patient Allergies No Known Allergies Allergy (Mild, Verified 09/20/24 10:51) NOT APPLICABLE Medication List - Last Reconciled 09/20/24 by Emmanuelle Swain MD amlodipine 5 mg PO DAILY 90 days aspirin 81 mg PO DAILY levetiracetam 500 mg PO BID metoprolol succinate ER 25 mg PO DAILY 90 days sacubitril-valsartan 24-26 mg (Entresto) 1 tab PO BID sertraline 25 mg PO DAILY 90 days HPI HPI Comments History of Present Illness Details The patient is an 84-year-old male presenting for a Medicare annual wellness exam. His vaccinations are current, with noted requirements for a tetanus booster next year. Mild hypertension was observed during today's visit, and he confirms taking Amlodipine. He is on a comprehensive medication regimen including Keppra for seizures, Metoprolol, Entresto for his cardiomyopathy, and Sertraline for depression, supplemented by counseling sessions. He reports no medication allergies but has seasonal allergies to pollen. Past medical history includes coronary artery disease, treated with a bypass in 2019, and pulmonary fibrosis requiring follow-up imaging. The patient notes symptoms of shortness of breath following exertion. Socially, he is a non-smoker and drinks alcohol moderately. - Up-to-date on pneumococcal and tetanus vaccinations - Scheduled for CT scan to monitor pulmonary scarring - Routine blood work ordered: cholesterol, glucose, renal and liver function tests - Annual medication and mental health assessments -PPP handed to patient. [place] of care reviewed and updated. [facility] Medical History Abnormal nuclear stress test Myocardial ischemia History of stroke Seizures Iron deficiency GERD (gastroesophageal reflux disease) CAD (coronary artery disease) of artery bypass graft Surgical History History of colonoscopy Hx of CABG History of lumbar surgery Family History Father Myocardial infarction Mother Diabetes Hypertension Social History Household Members: Spouse Housing: House Are you a primary interior plant caretaker to a significant other at home: No Do you presently have visiting nurse or other home services: No Alcohol intake: current Alcohol intake frequency: a few times a month Alcohol type: beer Patient Tobacco Use Status: Former Tobacco user e-Cigarette/Vaping Use: Never Used Second Hand Smoke Exposure: No Advance Directives Date on File: 11/28/23 service: No Current occupational status: retired Current occupation: [place] [employer] Cognitive needs: No Hearing needs: No Vision needs: Yes Questionnaire Medicare Wellness Checkup What is your age?: 80 or older What gender do you identify with?: male During the past 4 weeks, how much have you been bothered by emotional problems such as feeling anxious, depressed, irritable, sad or downhearted, and blue?: moderately During the past 4 weeks, has your physical & emotional health limited your social activities with family, friends, neighbors, or groups?: slightly During the past 4 weeks, how much bodily pain have you generally had?: no pain During the past 4 weeks, was someone available to help you if you needed & wanted help?: yes, as much as I wanted During the past 4 weeks, what was the hardest physical activity you could do for at least 2 minutes?: moderate Can you get to places out of walking distance without help? (For eg., can you travel alone on buses, taxis or drive your car?): Yes Can you go shopping for groceries or clothes without someone's help?: Yes Can you prepare your own meals?: Yes Can you do your housework without help?: Yes Because of any health problems, do you need the help of another person with your personal care needs such as eating, bathing, dressing or getting around the house?: No Can you handle your own money without help?: Yes During the past 4 weeks, how would you rate your health in general?: good During the past 4 weeks how have things been going for you?: pretty well Are you having difficulties driving your car?: no Do you always fasten your seat belt when you are in a car?: yes, usually During past 4 weeks, have you been bothered by the following: never: Sexual problems?, Trouble eating well?, Teeth or denture problems? and Problems using the telephone? and sometimes: Falling or dizzy when standing up and Tiredness or fatigue? Have you fallen 2 or more times in the past year?: No Are you afraid of falling?: No Are you a smoker?: no During the past 4 weeks, how many drinks of wine, beer, or other alcoholic beverages did you have?: 6-9 drinks per week Do you exercise for about 20 minutes 3 or more times a week?: yes, some of the time Have you been given information to help with the following?: no: Hazards in your house that might hurt you? and no: Keeping track of your medications? How often do you have trouble taking medicines the way you have been told to take them?: I always take medicine as prescribed How confident are you that you can control & manage most of your health problems?: somewhat confident What is your race?: White Mini Mental State Exam (MMSE) Orientation What is the (year) (season) (date) (day) (month)?: year, season, date, day and month Where are we (state) (county) (town or city) (hospital) (floor)?: state, county, town or city, hospital/clinic and floor Registration Name of 3 unrelated objects clearly and slowly, then ask patient to repeat all 3 of them. (1st repeat determines score. Make sure they can repeat all three): object 1, object 2 and object 3 Attention & Calculation (CHOOSE ONE) Spell WORLD backwards (DLROW): 5 letters Recall Ask patient to repeat the 3 items from question #3.: object 1, object 2 and object 3 Language Show patient a wristwatch & ask what it is. Repeat for pencil.: watch and pencil Ask the patient to repeat the phrase 'No ifs, ands, or buts' after you.: correct Ask the patient to 'take a piece of paper with their right hand' 'fold paper in half' 'place paper on floor': take paper in right hand, fold paper in half and place paper on floor Print the sentence 'CLOSE YOUR EYES' on a piece. If patient actually closes eyes then score.: followed written direction Give patient a blank piece of paper & ask to write a sentence. Score if it contains a noun & verb.: sentence contains subject and verb Ask patient to copy figure of intersecting pentagons exactly. Score if all 10 angles & 2 intersects are included.: all 10 angles present & 2 are intersected Score Score: 30 Activity of Daily Living Bathing - sponge bath, tub bath or shower: receives no assistance (gets in/out by self, if usual bathing means Dressing - getting clothes from closets & drawers, including inner/outer garments & fasteners.: gets clothes & gets completely dressed without help Toileting - going to the 'toilet room' for urine/bowel elimination & cleaning self/arranging clothes: goes to toilet room, cleans self, arranges clothes without help Transfer: moves in & out of bed and chair without help (may use support object) Continence: controls urination/bowel movements completely by self Feeding: feeds self without help Total Score: 0 Information obtained from: patient Using telephone: independent Traveling: independent Shopping: independent Preparing meals: independent Housework: independent Taking medicine: independent Managing money: independent PHQ-9 Over the last 2 weeks, how often have you been bothered by any of the following problems? 1. Little interest or pleasure in doing things: several days 2. Feeling down, depressed, or hopeless: several days 3. Trouble falling or staying asleep, or sleeping too much: several days 4. Feeling tired or having little energy: not at all 5. Poor appetite or overeating: not at all 6. Feeling bad about yourself - or that you are a failure or have let yourself or your family down: more than half the days 7. Trouble concentrating on things, such as reading the newspaper or watching television: several days 8. Moving or speaking so slowly that other people could have noticed. Or the opposite - being so fidgety or restless that you have been moving around a lot more than usual: not at all 9. Thoughts that you would be better off or of hurting yourself in some way: not at all Total score: 6 Depression Screening Interpretation: Positive Depression Screening Follow-up: Existing condition, In treatment, Community Mental Health Worker F/U and Follow-up Visit Requested Depression Screening Done: Yes 88209 - PHQ-9 Billing: Yes Source: Developed by Drs. Lex Dempsey, Sonia Mead, Yang Martinez and colleagues, with an educational eula from [employer] Fall Risk Assessment Fall Risk Assessment Fall risk assessment: No Falls in past year AUDIT C Alcohol Use Questionnaire (AUDIT-C) 1. How often do you have a drink containing alcohol?: 2-3 times a week 2. How many drinks containing alcohol do you have on a typical day when you are drinking?: 1 or 2 3. How often do you have six or more drinks on one occasion?: Never Total Score: 3 Score Reviewed/Action Taken: No REGGIE-7 AMB Questionnaire REGGIE-7 Date REGGIE - 7 assessed: 09/20/24 Feeling nervous, anxious, or on edge: 2 = More than half the days Not being able to stop or control worryin = Several days Worrying too much about different things: 2 = More than half the days Trouble relaxin = More than half the days Being so restless that it is hard to sit still: 0 = Not at all Becoming easily annoyed or irritable: 0 = Not at all Feeling afraid as if something awful might happen: 0 = Not at all Total REGGIE-7 score (0-4 normal; 5-9 mild; 10-14 moderate; 15-21 severe): 7 Source: Developed by Drs. Lex Dempsey, Sonia Mead, Yang Martinez and colleagues, with an educational eula from [employer] REGGIE-7 Assessment Billing REGGIE-7 Assessment Tool: REGGIE-7 Assessment 21235 Thrive Questionnaire Date Thrive assessed: 09/13/23 Review of Systems Const All systems reviewed & are unremarkable except as noted in HPI and below Card Denies chest pain at rest, Denies chest pain with activity, Denies edema, Denies irregular heart rhythm, Denies claudication, Denies dyspnea, Denies dyspnea on exertion, Denies orthopnea, Denies paroxysmal nocturnal dyspnea and Denies slow heart rate Resp Denies cough, Denies dyspnea and Denies dyspnea on exertion GI Denies abdominal pain, Denies change in bowel habits, Denies excessive flatus, Denies nausea and Denies vomiting Neuro Denies confusion Psych Denies confusion Physical Exam Vital Signs: Last Vital Signs BP 140/78 H 09/20/24 10:38 BMI result Body Mass Index 21.9 Const General: No confusion Orientation/consciousness: patient oriented x3 and No confusion Resp Effort & Inspection: normal respiratory effort Auscultation: clear to auscultation bilaterally Cardio Jugular venous distension: no JVD Rate: regular rate Rhythm: regular rhythm Heart sounds: S1 normal heart sound present and S2 normal heart sound present Neuro General: patient oriented x3, no focal motor deficits and No confusion Romberg Test: Negative Extrem General: Yes full ROM Psych Appearance: grossly normal Assessment & Plan Assessment & Plan (1) Encounter for annual wellness exam in Medicare patient: Code(s): Z00.00 - Encounter for general adult medical examination without abnormal findings (2) Mild major depression: Code(s): F32.0 - Major depressive disorder, single episode, mild (3) Seizures: Code(s): R56.9 - Unspecified convulsions Plan I have focused on optimizing management plans for the patient?s chronic conditions and preventive care. Amlodipine will continue to regulate blood pressure, and Entresto is maintained for cardiomyopathy. Depression will be managed with Sertraline and regular counseling. Monitoring of pulmonary scarring is on schedule, with preventive screenings maintained up-to-date. Routine lab work will be completed, and further evaluation of shortness of breath will follow imaging results. Patient was informed and verbally consented to the use of an ambient scribe for clinic note documentation during this visit. I have discussed with the patient the importance of monitoring his hypertension and adherence to his current pharmacotherapy regimen. We reviewed the role of Entresto in heart failure management and underscored routine counseling and psychiatric follow-up. In anticipation of the CT scan, I explained its necessity for evaluating his lung condition, addressing the patient's voiced concerns about potential pathologies, which are, according to specialists, unlikely. Follow-up arrangements, particularly concerning his pulmonology visit, were confirmed. Orders: Orders Lipid Panel Today E78.5 - Hyperlipidemia, unspecified Comprehensive [place]. Panel Fast Today R56.9 - Unspecified convulsions Patient Instructions: - Continue current medication regimen - Complete fasting blood work as scheduled - Attend CT scan on Tuesday for lung evaluation - Report any increased shortness of breath or chest pain to your healthcare provider immediately - Schedule next health maintenance visit in one year - Update healthcare proxy as discussed during checkout Quality Reporting (2019) Fall Risk Screening ([facility] 139) Fall risk assessment: No Falls in past year Depression/Bipolar (159/160/161/177) PHQ-9: Total score: 6 Coding Level of Care Code Medicare Subsequent (G0439) Diagnoses Encounter for annual wellness exam in Medicare patient Z00.00 Mild major depression F32.0 Seizures R56.9 CPT Codes Advance Care Planning - Time spent: 1-15 minutes, on File ([id number]) Advance Care Planning - Advance Care Planning discussion: On file, no changes ([id number]) Additional Codes PHQ-9 - 74674 - PHQ-9 Billing: Yes ([id number]) REGGIE-7 Assessment Billing - REGGIE-7 Assessment Tool: REGGIE-7 Assessment 87666 ([id number]) Time Spent (min) 35 Advance Care Planning Advance Care Planning discussion: On file, no changes Date of discussion: 09/20/24 Who was present: patient and me Forms completed: Health Care Proxy Time spent: 1-15 minutes, on File Actual minutes spent: 2
[2024-09-20 10:38] VITALS: BP 140/78; BMI 21.9
== END 2024-09-20 11:14 | disposition home or self-care (01) ==
LOC: HO.HMCH 10:25
PROVIDERS: PCP Internal Medicine; Visit Provider Internal Medicine
DX: Z00.00 Encounter for general adult medical examination without abnormal findings (principal); F32.0 Major depressive disorder, single episode, mild; R56.9 Unspecified convulsions

== ENCOUNTER → 2024-09-20 10:24 | Outpatient (BNVA) | payer MEDICARE, OTHER, SELFPAY | PROVIDERS: PCP Internal Medicine; Visit Provider Internal Medicine | DX: Z00.00 Encounter for general adult medical examination without abnormal findings (principal); F32.0 Major depressive disorder, single episode, mild; R56.9 Unspecified convulsions; E78.5 Hyperlipidemia, unspecified; Z87.891 Personal history of nicotine dependence | CPT/HCPCS: 96127 ==

== ENCOUNTER 2024-09-24 09:42 | Outpatient (AMB) | payer MEDICARE, OTHER, SELFPAY ==
[2024-09-24 09:44] VITALS: BP 150/72; PULSE 65; O2SAT 94; BMI 22.0
--- NOTE | 2024-09-24 09:44 | A.OFFVIS_ITS ---
Vital Signs 09/24/24 09:44 Height 5 ft 11 in Weight 157 lb 10.088 oz BMI 22.0 BP 150/72 H Blood Pressure Location Rt brachial Position Sitting Pulse 65 Pulse Source Pulse Oximeter Pulse Oximetry (%) 94 Oxygen Delivery Method Room Air Intake Visit Reasons: Abnormal CT scan Allergies No Known Allergies Allergy (Mild, Verified 09/24/24 09:48) NOT APPLICABLE HPI HPI Abnormal CT scan: Details: Christopher is a pleasant 84-year-old male, former minimal smoker with less than 10 pyh, with a history of hypertension, coronary disease, GERD, depression, seizures, PR, CAD, CABG Atrial fibrillation and anemia. He was referred by PCP for pulmonary evaluation for persistent pleural effusion. He recently had chest CT which revealed moderate loculated LLL pleural effusion, compared to prior chest CT 2020 appears minimally unchanged. Initially we discussed diagnostic thoracentesis as it was thought to be a new finding however after comparison, it appears chronic and monitoring effusions/symptoms was warranted instead. Today he presents to review repeat chest CT. He continues to report intermittent dys pnea with moderate exertion such as stairs and occasional productive cough which he attributes to seasonal allergies/post nasal drip. He recently started taking Claritin with good effect. [facility] Medical History Abnormal nuclear stress test Myocardial ischemia History of stroke Seizures Iron deficiency GERD (gastroesophageal reflux disease) CAD (coronary artery disease) of artery bypass graft Surgical History History of colonoscopy Hx of CABG History of lumbar surgery Family History Father Myocardial infarction Mother Diabetes Hypertension Social History Household Members: Spouse Housing: House Are you a primary pet care technician to a significant other at home: No Do you presently have visiting nurse or other home services: No Alcohol intake: current Alcohol intake frequency: a few times a month Alcohol type: beer Patient Tobacco Use Status: Former Tobacco user e-Cigarette/Vaping Use: Never Used Second Hand Smoke Exposure: No Advance Directives Date on File: 11/28/23 service: No Current occupational status: retired Current occupation: [employer] [place] [employer] Cognitive needs: No Hearing needs: No Vision needs: Yes Review of Systems Const Denies chills, Denies excessive sweating, Denies fever(s), Denies headache(s) and Denies night sweats Eyes Denies dry eyes, Denies irritation and Denies itchy eyes ENT Reports Normal hearing present, Denies headache(s), Reports nasal congestion, Denies nasal discharge, Reports post nasal drip and Denies sore throat Card Denies chest pain, Denies chest pain at rest, Denies chest pain with activity, Denies claudication, Denies leg edema, Reports dyspnea on exertion, Denies orthopnea and Denies paroxysmal nocturnal dyspnea Resp Denies change in phlegm color, Denies chest congestion, Reports cough, Denies hemoptysis, Denies excessive phlegm production, Denies pain on inspiration, Denies pain with cough, Reports dyspnea on exertion, Denies stridor and Denies wheezing Musc Denies myalgias Neuro Reports Normal hearing present and Denies headache(s) Endo Denies excessive sweating Constantino/Lymph Denies lymphadenopathy Aller/Immun Denies itchy eyes, Reports seasonal rhinorrhea and Denies wheezing Physical Exam Vital Signs: Last Vital Signs Pulse 65 09/24/24 09:44 BP 150/72 H 09/24/24 09:44 Pulse Ox 94 09/24/24 09:44 Oxygen Delivery Method Room Air 09/24/24 09:44 BMI result Body Mass Index 22.0 Const General: cooperative, healthy appearing, comfortable, no acute distress, well developed and alert Orientation/consciousness: patient oriented x3 Limitations: no limitations HEENT Head: Yes normal to inspection, Yes normocephalic and Yes atraumatic Ears: hearing grossly normal bilaterally and external ears normal Eyes General: appearance normal, both eyes and all related structures Eyelids: Yes eyelids normal Sclerae: sclerae normal EOM: EOMs intact bilaterally Neck Neck: Yes normal visual inspection and Yes no lymphadenopathy Lymphatic: no lymphadenopathy noted Chest Chest palpation & inspection: normal inspection of the chest Resp Other: diminished lung sounds of LLL. Effort & Inspection: normal respiratory effort, able to speak in complete sentences, no audible wheezes, no cough, no stridor, not tachypneic, no tripod positioning and no use of accessory muscles Cardio Jugular venous distension: no JVD Rate: regular rate Rhythm: regular rhythm Skin Other: warm, dry General skin exam: no rashes or lesions noted Neuro General: patient oriented x3 Cranial nerves: Yes Normal hearing present Cognition (Neuro): normal cognition Gait exam (Neuro): Normal gait present Extrem General: Yes normal to inspection, Yes capillary refill normal, Yes no clubbing, cyanosis or edema and Yes no pedal edema Psych Appearance: grossly normal and well kempt Speech and movement: Normal speech and movement present and Clear speech present Affect: normal affect Attitude: cooperative Thought process: Normal thought process present Thought content: Normal thought content present Insight: Good insight present (Psych) Judgement: Good judgement present (Psych) Results Reviewed Results Reviewed: [address] [address] [address] Scan Report Signed Patient: Parviz Null MR#: [id number] : 1940 Acct:[id number] Age/Sex: 84 / M ADM Date: 07/02/24 Loc: HO.CT Attending Dr: Amanda Kirby NP Ordering Physician: Amanda Kirby NP Date of Service: 07/02/24 Procedure(s): CT chest wo IV con Accession Number(s): [id number] cc: Emmanuelle Csatle MD; Amanda Kirby NP~ Report Number: [id number]: Total DLP = 104.00 mGy-cm CLINICAL HISTORY: J90 - Pleural effusion, not elsewhere classified CT chest without contrast Comparison: CT/WA/SR - CT CHEST WO IV CON - 12/23/23 07:44 EDT CR/SR - XR CHEST 2V - 12/13/23 07:28 EDT CR/WA/SR - XR CHEST 2V - 11/28/23 09:[address]/[place] [id number] - 04/04/19 22:25 EST Findings: No mediastinal mass or lymphadenopathy. No cardiomegaly. Severe calcified coronary artery disease status post CABG. Upper limit of normal size aortic root, measuring 3.9 cm. Upper limit of normal size ascending aorta, measuring 3.9 cm. Upper limit of normal size descending thoracic aorta, measuring 2.9 cm. Moderate calcified atherosclerotic disease. Mild biapical scarring with calcification. Scarring at the lung bases, greater on the left, with pulling of the bronchovascular bundles. Mild paraseptal and centrilobular emphysema with mild bronchial wall thickening. Calcified granuloma. No pneumothorax. Small left pleural effusion with pleural thickening, also present on the prior studies. No acute osseous or soft tissue abnormality. No acute pathology in the imaged portion of the upper abdomen. Small to moderate-sized hiatal hernia. Impression: Chronic small left pleural effusion with pleural thickening and scarring. This document has been electronically signed by: Chelle Nickerson MD on 07/02/2024 22:03:01 Dictated By: Chelle Clemons MD Signed By: <Electronically signed by Chelle Clemons MD in OV> 07/02/242203 DD/ 02 TD/TT: 07/02/242202 Rack Room Worker: Assessment & Plan Assessment & Plan (1) Pleural effusion: Code(s): J90 - Pleural effusion, not elsewhere classified Category: Medical (2) Dyspnea on exertion: Code(s): R06.09 - Other forms of dyspnea Category: Medical Plan Reviewed chest CT which reveals chronic moderate left pleural effusions, essentially unchanged compared to prior CT dating back to 2019. We discussed monitoring with serial CT as due to the chronicity and stability of findings which patient was in agreement. Will repeat in one year. Due to ongoing intermittent dyspnea, will send for PFT. All questions were answered and patient is in agreement of plan. Will follow up to review results or sooner if needed. Orders: Orders PFT pulmonary function test Today R06.09 - Other forms of dyspnea CT chest wo IV con 9 Months J90 - Pleural effusion, not elsewhere classified Coding Level of Care Code Est Pt Level 4 (57459) Diagnoses Pleural effusion J90 Dyspnea on exertion R06.09
== END 2024-09-24 10:33 | disposition home or self-care (01) ==
LOC: HO.HPS 09:43
PROVIDERS: PCP Internal Medicine; Visit Provider Nurse Practitioner Family
DX: J90 Pleural effusion, not elsewhere classified (principal); R06.09 Other forms of dyspnea
CPT/HCPCS: 99214

== ENCOUNTER → 2024-09-24 09:42 | Outpatient (BNVA) | payer MEDICARE, OTHER, SELFPAY | PROVIDERS: PCP Internal Medicine; Visit Provider Nurse Practitioner Family | DX: J90 Pleural effusion, not elsewhere classified (principal); R06.09 Other forms of dyspnea | CPT/HCPCS: 99212 ==

== ENCOUNTER 2024-09-26 07:05 | Outpatient (REF) | payer MEDICARE, OTHER, SELFPAY ==
[2024-09-26 09:06] LABS: Alanine Aminotransferase 22 U/L (0-40); Albumin Level 4.3 g/dL (3.5-5.0); Alkaline Phosphatase 49 U/L (39-117); Anion Gap 11 (12-20); Aspartate Amino Transferase 24 U/L (5-37); Bilirubin Total 0.8 mg/dL (0.0-1.0); Blood Urea Nitrogen 11 mg/dL (9-16); Carbon Dioxide 28 mmol/L (22-29); Chloride 107 mmol/L (96-108); Cholesterol 165 mg/dL (<200); Estimated Glomerular Filt Rate > 60; Glucose Fasting 90 mg/dL (60-99); HDL Cholesterol 69 mg/dL (>40); LDL Cholesterol Calculated 84 mg/dL (<100); Potassium 4.6 mmol/L (3.3-5.1); Sodium 141 mmol/L (135-145); Total Protein 7.2 g/dL (6.5-8.0); Triglycerides 64 mg/dL (<150)
== END 2024-09-26 07:06 | disposition home or self-care (01) ==
LOC: HO.LAB 07:05
PROVIDERS: PCP Internal Medicine; Visit Provider Internal Medicine
DX: I10 Essential (primary) hypertension (principal); E78.5 Hyperlipidemia, unspecified; R56.9 Unspecified convulsions
CPT/HCPCS: 36415; 80053; 80061

== ENCOUNTER 2024-10-26 09:26 | Outpatient (REF) | payer MEDICARE, OTHER, SELFPAY ==
[2024-10-26 11:05] VITALS: PULSE 74; RESP 16; O2SAT 93
--- NOTE | 2024-10-26 14:35 | PFT_ITS ---
Indication: Dyspnea Spirometry FEV1 to FVC 67% pre bronchodilators and 72% post bronchodilators; FEV1 2.14 L; FVC 2.99 L. the patient did have a trend response to bronchodilators noted. To note the FEF 09/04/2074 was 69% predicted suggesting small airways disease. Lung Volumes Total lung capacity 67% predicted; residual volume 55% predicted Diffusion Capacity DLCO 54% predicted Comparisons none Interpretation There is a reversible obstructive ventilatory defect suggesting the diagnosis of asthma and/or asthma COPD overlap syndrome. The patient did have a trend response to bronchodilators and also small airways disease. In addition, the patient does have a restrictive ventilatory defect consistent with [id number] restrictive lung disease. The patient also carries a moderate diffusion impairment. Clinical correlation warranted. MTDD
== END 2024-10-26 09:27 | disposition home or self-care (01) ==
LOC: HO.RESP 09:26
PROVIDERS: PCP Internal Medicine; Visit Provider Nurse Practitioner Family
DX: R06.09 Other forms of dyspnea (principal)
CPT/HCPCS: 94010; 94640; 94727; 94729

== ENCOUNTER → 2024-10-26 14:35 | Outpatient (BNV) | payer MEDICARE, OTHER, SELFPAY | PROVIDERS: PCP Internal Medicine; Visit Provider Hospitalist | DX: R06.00 Dyspnea, unspecified (principal) | CPT/HCPCS: 94060; 94727; 94729 ==

== ENCOUNTER 2024-11-12 10:28 | Outpatient (AMB) | payer MEDICARE, OTHER, SELFPAY ==
[2024-11-12 10:52] VITALS: BP 140/64; PULSE 65; O2SAT 94; BMI 22.4
--- NOTE | 2024-11-12 10:52 | A.OFFVIS_ITS ---
Vital Signs 11/12/24 10:52 Height 5 ft 11 in Weight 160 lb 14.999 oz BMI 22.4 BP 140/64 H Blood Pressure Location Lt brachial Position Sitting Pulse 65 Pulse Source Pulse Oximeter Pulse Oximetry (%) 94 Oxygen Delivery Method Room Air Intake Visit Reasons: Pleural effusion/PFT Follow Up Allergies No Known Allergies Allergy (Mild, Verified 11/12/24 10:55) NOT APPLICABLE HPI HPI Pleural effusion/PFT Follow Up: Details: Christopher is a pleasant 84-year-old male, former minimal smoker with less than 10 pyh, with a history of hypertension, coronary disease, GERD, depression, seizures, [place], CAD, CABG Atrial fibrillation and anemia. Prior chest CT revealed moderate loculated LLL pleural effusion, compared to prior chest CT 2020 appears minimally unchanged. Initially we discussed diagnostic thoracentesis as it was thought to be a new finding however after comparison, it appears chronic and monitoring effusions/symptoms was warranted instead. Today he presents to review PFT results as he noted ongoing dyspnea. [facility] Medical History Abnormal nuclear stress test Myocardial ischemia History of stroke Seizures Iron deficiency GERD (gastroesophageal reflux disease) CAD (coronary artery disease) of artery bypass graft Surgical History History of colonoscopy Hx of CABG History of lumbar surgery Family History Father Myocardial infarction Mother Diabetes Hypertension Social History Household Members: Spouse Housing: House Are you a primary healthcare project manager to a significant other at home: No Do you presently have visiting nurse or other home services: No Alcohol intake: current Alcohol intake frequency: a few times a month Alcohol type: beer Patient Tobacco Use Status: Former Tobacco user e-Cigarette/Vaping Use: Never Used Second Hand Smoke Exposure: No Advance Directives Date on File: 11/28/23 service: No Current occupational status: retired Current occupation: [place] [employer] Cognitive needs: No Hearing needs: No Vision needs: Yes Review of Systems Const Denies chills, Denies excessive sweating, Denies fever(s), Denies headache(s) and Denies night sweats Eyes Denies dry eyes, Denies irritation and Denies itchy eyes ENT Reports Normal hearing present, Denies headache(s), Reports nasal congestion, Denies nasal discharge, Reports post nasal drip and Denies sore throat Card Denies chest pain, Denies chest pain at rest, Denies chest pain with activity, Denies claudication, Denies leg edema, Reports dyspnea on exertion, Denies orthopnea and Denies paroxysmal nocturnal dyspnea Resp Denies change in phlegm color, Denies chest congestion, Reports cough, Denies hemoptysis, Denies excessive phlegm production, Denies pain on inspiration, Denies pain with cough, Reports dyspnea on exertion, Denies stridor and Denies wheezing Musc Denies myalgias Neuro Reports Normal hearing present and Denies headache(s) Endo Denies excessive sweating Constantino/Lymph Denies lymphadenopathy Aller/Immun Denies itchy eyes, Reports seasonal rhinorrhea and Denies wheezing Physical Exam Vital Signs: Last Vital Signs Pulse 65 11/12/24 10:52 BP 140/64 H 11/12/24 10:52 Pulse Ox 94 11/12/24 10:52 Oxygen Delivery Method Room Air 11/12/24 10:52 BMI result Body Mass Index 22.4 Const General: cooperative, healthy appearing, comfortable, no acute distress, well developed and alert Orientation/consciousness: patient oriented x3 Limitations: no limitations HEENT Head: Yes normal to inspection, Yes normocephalic and Yes atraumatic Ears: hearing grossly normal bilaterally and external ears normal Eyes General: appearance normal, both eyes and all related structures Eyelids: Yes eyelids normal Sclerae: sclerae normal EOM: EOMs intact bilaterally Neck Neck: Yes normal visual inspection and Yes no lymphadenopathy Lymphatic: no lymphadenopathy noted Chest Chest palpation & inspection: normal inspection of the chest Resp Other: diminished lung sounds of LLL. Effort & Inspection: normal respiratory effort, able to speak in complete sentences, no audible wheezes, no cough, no stridor, not tachypneic, no tripod positioning and no use of accessory muscles Cardio Jugular venous distension: no JVD Rate: regular rate Rhythm: regular rhythm Skin Other: warm, dry General skin exam: no rashes or lesions noted Neuro General: patient oriented x3 Cranial nerves: Yes Normal hearing present Cognition (Neuro): normal cognition Gait exam (Neuro): Normal gait present Extrem General: Yes normal to inspection, Yes capillary refill normal, Yes no clubbing, cyanosis or edema and Yes no pedal edema Psych Appearance: grossly normal and well kempt Speech and movement: Normal speech and movement present and Clear speech present Affect: normal affect Attitude: cooperative Thought process: Normal thought process present Thought content: Normal thought content present Insight: Good insight present (Psych) Judgement: Good judgement present (Psych) Assessment & Plan Assessment & Plan (1) Asthma: Code(s): J45.909 - Unspecified asthma, uncomplicated Category: Medical (2) Pleural effusion: Code(s): J90 - Pleural effusion, not elsewhere classified Category: Medical Plan Reviewed chest CT which reveals chronic moderate left pleural effusions, essentially unchanged compared to prior CT dating back to 2019. We discussed monitoring with serial CT as due to the chronicity and stability of findings which patient was in agreement. Will repeat in one year. Due to ongoing intermittent dyspnea, patient was sent for PFT which was consistent with asthma. Will send ICS and discussed importance of good oral hygiene to prevent thrush. Will avoid LABA component due to atrial fibrillation and trial levalbuterol in its place. All questions were answered and patient is in agreement of plan. Will follow up in 6-8 weeks or sooner if needed. Medications: New fluticasone furoate 100 mcg/actuation (Arnuity Ellipta) 1 inh inhalation DAILY 30 ea 6RF levalbuterol tartrate 45 mcg/actuation (Xopenex HFA) 1 puff inhalation Q6H 15 grams 6RF Coding Level of Care Code Est Pt Level 4 (84928) Diagnoses Asthma J45.909 Pleural effusion J90
== END 2024-11-12 11:24 | disposition home or self-care (01) ==
LOC: HO.HPS 10:29
PROVIDERS: PCP Internal Medicine; Visit Provider Nurse Practitioner Family
DX: J45.909 Unspecified asthma, uncomplicated (principal); J90 Pleural effusion, not elsewhere classified
CPT/HCPCS: 99214

== ENCOUNTER → 2024-11-12 10:28 | Outpatient (BNVA) | payer MEDICARE, OTHER, SELFPAY | PROVIDERS: PCP Internal Medicine; Visit Provider Nurse Practitioner Family | DX: J45.909 Unspecified asthma, uncomplicated (principal); J90 Pleural effusion, not elsewhere classified | CPT/HCPCS: 99212 ==

== ENCOUNTER 2024-12-31 08:34 | Outpatient (AMB) | payer MEDICARE, OTHER, SELFPAY ==
--- NOTE | 2024-12-31 08:45 | MHC.OFFVIS ---
Vital Signs 12/31/24 08:46 Height 5 ft 11 in Weight 162 lb 0.636 oz BMI 22.6 BP 140/68 H Blood Pressure Location Lt brachial Position Sitting Pulse 66 Pulse Source Pulse Oximeter Pulse Oximetry (%) 96 Oxygen Delivery Method Room Air Intake Visit Reasons: Pleural effusion/PFT Follow Up Allergies No Known Allergies Allergy (Mild, Verified 12/31/24 08:48) NOT APPLICABLE HPI HPI Pleural effusion/PFT Follow Up: Details: Christopher is a pleasant 84-year-old male, former minimal smoker with less than 10 pyh, with underlying asthma, hypertension, coronary disease, GERD, depression, seizures, [place], CAD, CABG Atrial fibrillation under the care of PVC and anemia. Prior chest CT revealed moderate loculated LLL pleural effusion, compared to prior chest CT 2020 appears minimally unchanged. Initially we discussed diagnostic thoracentesis as it was thought to be a new finding however after comparison, it appears chronic and monitoring effusions/symptoms was warranted instead. Prior PFT suggestive of asthma and patient was started on Arnuity and Levalbuterol PRN. He reports improvements in chest tightness since initiating Arnuity however continues with dry cough and dyspnea. He has not trialed Levalbuterol. He denies any visits to urgent care or hospitalizations related to respiratory distress since the last visit. [facility] Medical History Abnormal nuclear stress test Myocardial ischemia History of stroke Seizures Iron deficiency GERD (gastroesophageal reflux disease) CAD (coronary artery disease) of artery bypass graft Surgical History History of colonoscopy Hx of CABG History of lumbar surgery Family History Father Myocardial infarction Mother Diabetes Hypertension Social History Household Members: Spouse Housing: House Are you a primary care attendant to a significant other at home: No Do you presently have visiting nurse or other home services: No Alcohol intake: current Alcohol intake frequency: a few times a month Alcohol type: beer Patient Tobacco Use Status: Former Tobacco user e-Cigarette/Vaping Use: Never Used Second Hand Smoke Exposure: No Advance Directives Date on File: 11/28/23 service: No Current occupational status: retired Current occupation: [place] [employer] Cognitive needs: No Hearing needs: No Vision needs: Yes Review of Systems Const Denies chills, Denies excessive sweating, Denies fever(s), Denies headache(s) and Denies night sweats Eyes Denies dry eyes, Denies irritation and Denies itchy eyes ENT Reports Normal hearing present, Denies headache(s), Reports nasal congestion, Denies nasal discharge, Reports post nasal drip and Denies sore throat Card Denies chest pain, Denies chest pain at rest, Denies chest pain with activity, Denies claudication, Denies leg edema, Reports dyspnea on exertion, Denies orthopnea and Denies paroxysmal nocturnal dyspnea Resp Denies change in phlegm color, Denies chest congestion, Reports cough, Denies hemoptysis, Denies excessive phlegm production, Denies pain on inspiration, Denies pain with cough, Reports dyspnea on exertion, Denies stridor and Denies wheezing Musc Denies myalgias Neuro Reports Normal hearing present and Denies headache(s) Endo Denies excessive sweating Constantino/Lymph Denies lymphadenopathy Aller/Immun Denies itchy eyes, Reports seasonal rhinorrhea and Denies wheezing Physical Exam Vital Signs: Last Vital Signs Pulse 66 12/31/24 08:46 BP 140/68 H 12/31/24 08:46 Pulse Ox 96 12/31/24 08:46 Oxygen Delivery Method Room Air 12/31/24 08:46 BMI result Body Mass Index 22.6 Const General: cooperative, healthy appearing, comfortable, no acute distress, well developed and alert Orientation/consciousness: patient oriented x3 Limitations: no limitations HEENT Head: Yes normal to inspection, Yes normocephalic and Yes atraumatic Ears: hearing grossly normal bilaterally and external ears normal Eyes General: appearance normal, both eyes and all related structures Eyelids: Yes eyelids normal Sclerae: sclerae normal EOM: EOMs intact bilaterally Neck Neck: Yes normal visual inspection and Yes no lymphadenopathy Lymphatic: no lymphadenopathy noted Chest Chest palpation & inspection: normal inspection of the chest Resp Other: diminished lung sounds of LLL. Effort & Inspection: normal respiratory effort, able to speak in complete sentences, no audible wheezes, no cough, no stridor, not tachypneic, no tripod positioning and no use of accessory muscles Cardio Jugular venous distension: no JVD Rate: regular rate Rhythm: regular rhythm Skin Other: warm, dry General skin exam: no rashes or lesions noted Neuro General: patient oriented x3 Cranial nerves: Yes Normal hearing present Cognition (Neuro): normal cognition Gait exam (Neuro): Normal gait present Extrem General: Yes normal to inspection, Yes capillary refill normal, Yes no clubbing, cyanosis or edema and Yes no pedal edema Psych Appearance: grossly normal and well kempt Speech and movement: Normal speech and movement present and Clear speech present Affect: normal affect Attitude: cooperative Thought process: Normal thought process present Thought content: Normal thought content present Insight: Good insight present (Psych) Judgement: Good judgement present (Psych) Assessment & Plan Assessment & Plan (1) Asthma: Code(s): J45.909 - Unspecified asthma, uncomplicated Category: Medical (2) Pleural effusion: Code(s): J90 - Pleural effusion, not elsewhere classified Category: Medical Plan Patient reports some improvements since starting Arnuity encouraged to continue and trial Levalbuterol. If minimal improvement will increase Arnuity vs considering ICS/LABA. Prior chest CT revealed chronic moderate left pleural effusions, essentially unchanged compared to prior CT dating back to 2019. We discussed monitoring with serial CT as due to the chronicity and stability of findings which patient was in agreement. Will repeat in one year. All questions were answered and patient is in agreement of plan. Will follow up in 6-8 weeks or sooner if needed. Coding Level of Care Code Est Pt Level 4 (80548) Diagnoses Asthma J45.909 Pleural effusion J90
[2024-12-31 08:46] VITALS: BP 140/68; PULSE 66; O2SAT 96; BMI 22.6
== END 2024-12-31 09:15 | disposition home or self-care (01) ==
LOC: HO.HPS 08:35
PROVIDERS: PCP Internal Medicine; Visit Provider Nurse Practitioner Family
DX: J45.909 Unspecified asthma, uncomplicated (principal); J90 Pleural effusion, not elsewhere classified
CPT/HCPCS: 99214

== ENCOUNTER → 2024-12-31 08:34 | Outpatient (BNVA) | payer MEDICARE, OTHER, SELFPAY | PROVIDERS: PCP Internal Medicine; Visit Provider Nurse Practitioner Family | DX: J90 Pleural effusion, not elsewhere classified (principal); J45.909 Unspecified asthma, uncomplicated; Z87.891 Personal history of nicotine dependence; R06.09 Other forms of dyspnea | CPT/HCPCS: 99212 ==

== ENCOUNTER 2025-02-25 12:51 | Outpatient (AMB) | payer MEDICARE, OTHER, SELFPAY ==
--- NOTE | 2025-02-25 13:02 | MHC.OFFVIS ---
Vital Signs 02/25/25 13:03 Height 5 ft 11 in Weight 166 lb 7.184 oz BMI 23.2 BP 130/68 Blood Pressure Location Rt brachial Position Sitting Pulse 81 Pulse Source Pulse Oximeter Pulse Oximetry (%) 94 Oxygen Delivery Method Room Air Intake Visit Reasons: Pleural effusion Allergies No Known Allergies Allergy (Mild, Verified 02/25/25 13:06) NOT APPLICABLE HPI HPI Pleural effusion: Details: Christopher is a pleasant 85-year-old male, former minimal smoker with less than 10 pyh, with underlying asthma, hypertension, coronary disease, GERD, depression, seizures, [place], CAD, CABG Atrial fibrillation under the care of PVC and anemia. Prior chest CT 06/2024 revealed moderate loculated LLL pleural effusion, compared to prior chest CT 2020 appears minimally unchanged. Initially we discussed diagnostic thoracentesis as it was thought to be a new finding however after comparison and discussion with Dr. Roblero, it appears chronic and monitoring effusions/symptoms was warranted instead. Prior PFT suggestive of asthma and patient was started on Arnuity and Levalbuterol PRN. Unfortunately Levalbuterol was not covered by insurance and has used Albuterol MDI PRN with good effect. Unfortunately, patient has discontinued Arnuity as he was under the impression he should only be using one inhaler. He continues with dyspnea, dry cough and intermittent chest tightness. Denies wheezing. He denies any visits to urgent care or hospitalizations related to respiratory distress since the last visit. [facility] Medical History Abnormal nuclear stress test Myocardial ischemia History of stroke Seizures Iron deficiency GERD (gastroesophageal reflux disease) CAD (coronary artery disease) of artery bypass graft Surgical History History of colonoscopy Hx of CABG History of lumbar surgery Family History Father Myocardial infarction Mother Diabetes Hypertension Social History Household Members: Spouse Housing: House Are you a primary managed care coordinator to a significant other at home: No Do you presently have visiting nurse or other home services: No Alcohol intake: current Alcohol intake frequency: a few times a month Alcohol type: beer Patient Tobacco Use Status: Former Tobacco user e-Cigarette/Vaping Use: Never Used Second Hand Smoke Exposure: No Advance Directives Date on File: 11/28/23 service: No Current occupational status: retired Current occupation: [place] [employer] Cognitive needs: No Hearing needs: No Vision needs: Yes Review of Systems Const Denies chills, Denies excessive sweating, Denies fever(s), Denies headache(s) and Denies night sweats Eyes Denies dry eyes, Denies irritation and Denies itchy eyes ENT Reports Normal hearing present, Denies headache(s), Reports nasal congestion, Denies nasal discharge, Reports post nasal drip and Denies sore throat Card Denies chest pain, Denies chest pain at rest, Denies chest pain with activity, Denies claudication, Denies leg edema, Reports dyspnea on exertion, Denies orthopnea and Denies paroxysmal nocturnal dyspnea Resp Denies change in phlegm color, Denies chest congestion, Reports cough, Denies hemoptysis, Denies excessive phlegm production, Denies pain on inspiration, Denies pain with cough, Reports dyspnea on exertion, Denies stridor and Denies wheezing Musc Denies myalgias Neuro Reports Normal hearing present and Denies headache(s) Endo Denies excessive sweating Constantino/Lymph Denies lymphadenopathy Aller/Immun Denies itchy eyes, Reports seasonal rhinorrhea and Denies wheezing Physical Exam Vital Signs: Last Vital Signs Pulse 81 02/25/25 13:03 BP 130/68 02/25/25 13:03 Pulse Ox 94 02/25/25 13:03 Oxygen Delivery Method Room Air 02/25/25 13:03 BMI result Body Mass Index 23.2 Const General: cooperative, healthy appearing, comfortable, no acute distress, well developed and alert Orientation/consciousness: patient oriented x3 Limitations: no limitations HEENT Head: Yes normal to inspection, Yes normocephalic and Yes atraumatic Ears: hearing grossly normal bilaterally and external ears normal Eyes General: appearance normal, both eyes and all related structures Eyelids: Yes eyelids normal Sclerae: sclerae normal EOM: EOMs intact bilaterally Neck Neck: Yes normal visual inspection and Yes no lymphadenopathy Lymphatic: no lymphadenopathy noted Chest Chest palpation & inspection: normal inspection of the chest Resp Other: diminished aeration of LLL. Effort & Inspection: normal respiratory effort, able to speak in complete sentences, no audible wheezes, no cough, no stridor, not tachypneic, no tripod positioning and no use of accessory muscles Cardio Jugular venous distension: no JVD Rate: regular rate Rhythm: regular rhythm Skin Other: warm, dry General skin exam: no rashes or lesions noted Neuro General: patient oriented x3 Cranial nerves: Yes Normal hearing present Cognition (Neuro): normal cognition Gait exam (Neuro): Normal gait present Extrem General: Yes normal to inspection, Yes capillary refill normal, Yes no clubbing, cyanosis or edema and Yes no pedal edema Psych Appearance: grossly normal and well kempt Speech and movement: Normal speech and movement present and Clear speech present Affect: normal affect Attitude: cooperative Thought process: Normal thought process present Thought content: Normal thought content present Insight: Good insight present (Psych) Judgement: Good judgement present (Psych) Assessment & Plan Assessment & Plan (1) Asthma: Code(s): J45.909 - Unspecified asthma, uncomplicated Category: Medical (2) Pleural effusion: Code(s): J90 - Pleural effusion, not elsewhere classified Category: Medical Plan Patient previously on Arnuity with suboptimal effect, received relief of chest tightness with Albuterol MDI PRN, therefore will start on Breo. Discussed importance of good oral hygiene to prevent thrush. Will also send for CXR to assess for underlying parenchymal condition contributing to dyspnea. He is aware to call if symptoms do not improve. Prior chest CT 06/2024 revealed chronic moderate left pleural effusion, essentially unchanged compared to prior CT dating back to 2019. We discussed monitoring with serial CT as due to the chronicity and stability of findings which patient was in agreement. He will have chest CT scheduled 06/2025. All questions were answered and patient is in agreement of plan. Will follow up to review results or sooner if needed. Orders: Orders XR chest 2V Today J90 - Pleural effusion, not elsewhere classified Medications: New fluticasone furoate-vilanterol 100-25 mcg/dose (Breo Ellipta) 1 inh inhalation DAILY 60 ea 3RF Coding Level of Care Code Est Pt Level 4 (32010) Diagnoses Asthma J45.909 Pleural effusion J90
[2025-02-25 13:03] VITALS: BP 130/68; PULSE 81; O2SAT 94; BMI 23.2
== END 2025-02-25 13:28 | disposition home or self-care (01) ==
LOC: HO.HPS 12:52
PROVIDERS: PCP Internal Medicine; Visit Provider Nurse Practitioner Family
DX: J45.909 Unspecified asthma, uncomplicated (principal); J90 Pleural effusion, not elsewhere classified
CPT/HCPCS: 99214

== ENCOUNTER → 2025-02-25 12:51 | Outpatient (BNVA) | payer MEDICARE, OTHER, SELFPAY | PROVIDERS: PCP Internal Medicine; Visit Provider Nurse Practitioner Family | DX: J45.909 Unspecified asthma, uncomplicated (principal); J90 Pleural effusion, not elsewhere classified | CPT/HCPCS: 99212 ==

== ENCOUNTER 2025-02-26 08:00 | Outpatient (REF) | payer MEDICARE, OTHER, SELFPAY ==
--- NOTE | ~2025-02-26 | XR_ITS ---
EXAMINATION: XR CHEST CLINICAL INFORMATION: J90 - Pleural effusion, not elsewhere classified COMPARISON: December 13, 2023. TECHNIQUE: PA and lateral views. FINDINGS: Meniscal shaped opacities both hemithoraces. Mild prominence of the interstitial markings. Cardiomediastinal silhouette size is normal. Sternal wires. Calcified plaque aortic arch. Multilevel thoracolumbar lumbar spondylosis. XR/XR chest 2V IMPRESSION: Bilateral pleural effusions, moderate volume with mild interstitial lung edema. A text message via [employer] to nurse practitioner Amanda Kirby on February 26, 2025 at 8:23 AM. Electronically signed by: Alvaro Conklin MD 02/26/2025 08:23 AM [facility]
== END 2025-02-26 08:01 | disposition home or self-care (01) ==
LOC: HO.XRAY 08:00
PROVIDERS: PCP Internal Medicine; Visit Provider Nurse Practitioner Family
DX: J90 Pleural effusion, not elsewhere classified (principal)
CPT/HCPCS: 71046

== ENCOUNTER → 2025-02-26 08:05 | Outpatient (BNV) | payer MEDICARE, OTHER, SELFPAY | PROVIDERS: PCP Internal Medicine; Visit Provider Radiology Diagnostic Radiology | DX: J90 Pleural effusion, not elsewhere classified (principal); J81.0 Acute pulmonary edema | CPT/HCPCS: 71046 ==

== ENCOUNTER 2025-03-25 09:39 | Outpatient (AMB) | payer MEDICARE, OTHER, SELFPAY ==
[2025-03-25 09:42] VITALS: BP 136/74; PULSE 83; TEMP 36.2; O2SAT 96; BMI 22.2
--- NOTE | 2025-03-25 09:42 | MHC.PC.OV ---
Vital Signs 03/25/25 09:42 Height 5 ft 11 in Weight 159 lb BMI 22.2 BP 136/74 Blood Pressure Location Lt brachial Position Sitting Pulse 83 Pulse Source Pulse Oximeter Temp 97.2 F Temp Source Temporal Artery Scan Pulse Oximetry (%) 96 Oxygen Delivery Method Room Air Intake Visit Reasons: seizures Single Ending Machine Operator Required: No Accompanied by: Self / Same As Patient Allergies No Known Allergies Allergy (Mild, Verified 03/25/25 09:55) NOT APPLICABLE Medication List - Last Reconciled 03/25/25 by Emmanuelle Swain MD albuterol sulfate 90 mcg/actuation 1 puff inhalation Q4-6H PRN amlodipine 5 mg PO DAILY 90 days aspirin 81 mg PO DAILY fluticasone furoate-vilanterol 100-25 mcg/dose (Breo Ellipta) 1 inh inhalation DAILY levetiracetam 500 mg PO BID lisinopril 20 mg PO DAILY metoprolol succinate ER 25 mg PO DAILY 90 days sacubitril-valsartan 24-26 mg (Entresto) 1 tab PO BID sertraline 25 mg PO DAILY 90 days simvastatin 10 mg PO DAILY Tobacco use date assessed: 03/25/25 Fall risk assessment: No Falls in past year Last assessed Fall Risk: 03/25/25 Dental Screening Dental Screen Date: 03/25/25 Did you have a dental visit in the last 12 months?: No Did you have a dental problem in the last 6 months where you did not have access to dental care?: No HPI HPI Comments History of Present Illness Details The patient is an 85-year-old male presenting for a follow-up on his chronic conditions. His chronic conditions include hypertension, seizure disorder, coronary artery disease, history of pleural effusion, depression with anxiety, and hyperlipidemia. He is taking amlodipine 5 mg, lisinopril, and metoprolol for his blood pressure, which is well-controlled with a recent reading of less than 130/80 mmHg. For his seizure disorder, he takes Keppra 500 mg twice a day and reports no recent seizures. His cardiac history includes coronary artery disease, and he is managed on baby aspirin, Entresto twice a day, and metoprolol. He uses a Breo inhaler once daily and another inhaler as needed. He also takes sertraline for depression with anxiety and simvastatin 10 mg for cholesterol. The patient has a history of pleural effusion and is being followed by a field marketing team leader. Regarding vaccinations, he received a flu shot in January 2024, and his tetanus vaccine is up to date until next year. He received a previous pneumonia vaccine when he was 76 but is due for the latest PCV20 vaccine. The patient recently lost his and is experiencing grief, stating that the holidays are difficult. He is receiving counseling to help him reset and reconnect. [facility] Medical History Abnormal nuclear stress test Myocardial ischemia History of stroke Seizures Iron deficiency GERD (gastroesophageal reflux disease) CAD (coronary artery disease) of artery bypass graft Surgical History History of colonoscopy Hx of CABG History of lumbar surgery Family History Father Myocardial infarction Mother Diabetes Hypertension Social History Household Members: Spouse Housing: House Are you a primary housekeeper child care to a significant other at home: No Do you presently have visiting nurse or other home services: No Alcohol intake: current Alcohol intake frequency: a few times a month Alcohol type: beer Patient Tobacco Use Status: Former Tobacco user e-Cigarette/Vaping Use: Never Used Second Hand Smoke Exposure: No Advance Directives Date on File: 11/28/23 service: No Current occupational status: retired Current occupation: [employer] Cognitive needs: No Hearing needs: No Vision needs: Yes Questionnaire PHQ-9 Over the last 2 weeks, how often have you been bothered by any of the following problems? 1. Little interest or pleasure in doing things: not at all 2. Feeling down, depressed, or hopeless: not at all 3. Trouble falling or staying asleep, or sleeping too much: not at all 4. Feeling tired or having little energy: not at all 5. Poor appetite or overeating: not at all 6. Feeling bad about yourself - or that you are a failure or have let yourself or your family down: not at all 7. Trouble concentrating on things, such as reading the newspaper or watching television: not at all 8. Moving or speaking so slowly that other people could have noticed. Or the opposite - being so fidgety or restless that you have been moving around a lot more than usual: not at all 9. Thoughts that you would be better off or of hurting yourself in some way: not at all Total score: 0 Depression Screening Interpretation: Negative Depression Screening Done: Yes 42483 - PHQ-9 Billing: Yes Source: Developed by Drs. Lex Dempsey, Sonia Mead, Yang Martinez and colleagues, with an educational eula from [employer]. Thrive Questionnaire Date Thrive assessed: 09/13/23 I am a: Patient What is your living situation today?: I have a steady place to live Within the past 12 months, did the food you bought not last and you didn't have the money to get more?: Never true Within the past 12 months, did you worry whether your food would run out before you got money to buy more?: Never true Do you have trouble paying for medicines?: No Do you have trouble getting transportation to medical appointments?: No Do you have trouble paying your heating and electricity bill?: No Do you have trouble taking care of your child, family member or friend?: No Do you have trouble with day-to-day activities such as bathing, preparing meals, shopping, managing finances, etc.?: No Are you currently unemployed and looking for a job?: No Are you interested in more education?: No Please select the resources that you would like help with: None Currently or been in a relationship where the following occur: No concerns reported THRIVE Score: 0 AUDIT C Alcohol Use Questionnaire (AUDIT-C) 1. How often do you have a drink containing alcohol?: 2-3 times a week 2. How many drinks containing alcohol do you have on a typical day when you are drinking?: 1 or 2 3. How often do you have six or more drinks on one occasion?: Never Total Score: 3 REGGIE-7 AMB Questionnaire REGGIE-7 Date REGGIE - 7 assessed: 09/20/24 Feeling nervous, anxious, or on edge: 1 = Several days Not being able to stop or control worryin = Not at all Worrying too much about different things: 0 = Not at all Trouble relaxin = Not at all Being so restless that it is hard to sit still: 0 = Not at all Becoming easily annoyed or irritable: 0 = Not at all Feeling afraid as if something awful might happen: 0 = Not at all Total REGGIE-7 score (0-4 normal; 5-9 mild; 10-14 moderate; 15-21 severe): 1 Source: Developed by Drs. Lex Dempsey, Sonia Mead, Yang Martinez and colleagues, with an educational eula from [employer]. REGGIE-7 Assessment Billing REGGIE-7 Assessment Tool: REGGIE-7 Assessment 57283 Review of Systems Const All systems reviewed & are unremarkable except as noted in HPI and below Card Denies chest pain at rest, Denies chest pain with activity, Denies edema, Denies irregular heart rhythm, Denies claudication, Denies dyspnea, Denies dyspnea on exertion, Denies orthopnea, Denies paroxysmal nocturnal dyspnea and Denies slow heart rate Resp Denies cough, Denies dyspnea and Denies dyspnea on exertion Physical exam (Primary Care) Vital Signs: Last Vital Signs Temp 97.2 F 03/25/25 09:42 Pulse 83 03/25/25 09:42 BP 136/74 03/25/25 09:42 Pulse Ox 96 03/25/25 09:42 Oxygen Delivery Method Room Air 03/25/25 09:42 BMI result Body Mass Index 22.2 Tobacco/Smoking Status: Tobacco use Status Tobacco use date assessed 03/25/25 03/25/25 09:43 Patient Tobacco Use Status Former Tobacco user 03/25/25 09:43 e-Cigarette/Vaping Use Never Used 03/25/25 09:43 PHQ-9: PHQ-9 Score PHQ-9: Total score 0 03/25/25 10:15 Depression Screening Interpretation: Negative Thrive Assessment: Date of Thrive Assessment Date Thrive assessed 09/13/23 03/25/25 09:43 Currently or been in a relationship where the following occur: No concerns reported Resp Effort & Inspection: normal respiratory effort Auscultation: clear to auscultation bilaterally Cardio Jugular venous distension: no JVD Rate: regular rate Rhythm: regular rhythm Heart sounds: S1 normal heart sound present and S2 normal heart sound present Extrem General: Yes full ROM Immunizations pneumoc 20-faustina conj-dip cr(PF) 0.5 mL IM syringe Performing Provider: Emmanuelle Swain MD Performing Location: [facility] Administered by: Pebbles Vazquez LPN on 03/25/25 10:14 Dose Route Admin Location Dispensed Lot Number Expiration Date [facility] 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 transplanted heart: [place] heart Associated angina: without angina Seizures R56.9 Additional Codes REGGIE-7 Assessment Billing - REGIGE-7 Assessment Tool: REGGIE-7 Assessment 33199 ([id number]) PHQ-9 - 94369 - PHQ-9 Billing: Yes ([id number]) Time Spent (min) 23 Assessment & Plan Assessment & Plan (1) Mild major depression: Code(s): F32.0 - Major depressive disorder, single episode, mild Category: Medical (2) Hypertension: Code(s): I10 - Essential (primary) hypertension Category: Medical Qualifiers: Hypertension type: primary hypertension Qualified Code(s): I10 - Essential (primary) hypertension (3) CAD (coronary artery disease) of artery bypass graft: Code(s): I25.810 - Atherosclerosis of coronary artery bypass graft(s) without angina pectoris Category: Medical Qualifiers: [place] vs. transplanted heart: [place] heart Associated angina: without angina Qualified Code(s): I25.810 - Atherosclerosis of coronary artery bypass graft(s) without angina pectoris (4) Seizures: Code(s): R56.9 - Unspecified convulsions Category: Medical Plan Plan 1. Mild major depression Continue counseling. Continue sertraline. 2. Essential hypertension Continue amlodipine. Blood pressure goal is equal or less than 130/80. 3. Coronary artery disease Continue aspirin for secondary prophylaxis. Continue metoprolol. 4. Seizures Continue Keppra. Orders: Orders Pneumococcal 20 Immunization Today Z23 - Encounter for immunization Lipid Panel 6 Months E78.5 - Hyperlipidemia, unspecified Comprehensive Simms. Panel Fast 6 Months I25.810 - Atherosclerosis of coronary artery bypass graft(s) without angina pectoris
== END 2025-03-25 10:21 | disposition home or self-care (01) ==
LOC: HO.HMCH 09:40
PROVIDERS: PCP Internal Medicine; Visit Provider Internal Medicine
DX: R56.9 Unspecified convulsions (principal); F32.0 Major depressive disorder, single episode, mild; I10 Essential (primary) hypertension; I25.810 Atherosclerosis of coronary artery bypass graft(s) without angina pectoris; Z23 Encounter for immunization

== ENCOUNTER → 2025-03-25 09:39 | Outpatient (BNVA) | payer MEDICARE, OTHER, SELFPAY | PROVIDERS: PCP Internal Medicine; Visit Provider Internal Medicine | DX: I10 Essential (primary) hypertension (principal); F32.0 Major depressive disorder, single episode, mild; I25.810 Atherosclerosis of coronary artery bypass graft(s) without angina pectoris; R56.9 Unspecified convulsions; Z13.31 Encounter for screening for depression; Z23 Encounter for immunization; Z79.899 Other long term (current) drug therapy | CPT/HCPCS: 90471; 90677; 96127; 99212 ==